=== PATIENT | female | born 1955 | race Caucasian/White ===

== ENCOUNTER 2016-08-17 19:45 | Emergency (ER) | payer MEDICARE, OTHER ==
[2016-08-17] MEDS ORDERED: ONDANSETRON 4 MG/2 ML VIAL IVP STA (20:10)
[2016-08-17] MEDS ORDERED: SODIUM CHLORIDE 0.9% 1,000 ML IV ONE ×3 (20:10→22:30)
[2016-08-17] MEDS ORDERED: ONDANSETRON 4 MG/2 ML VIAL ONE (20:12)
[2016-08-17] MEDS ORDERED: HALOPERIDOL 5 MG/ML VIAL IVP ONE (20:31)
[2016-08-17] MEDS ORDERED: HALOPERIDOL 5 MG/ML VIAL ONE (20:36)
[2016-08-17] MEDS ORDERED: PROMETHAZINE 25 MG SUPP PR STA (23:57)
[2016-08-18] MEDS ORDERED: PROMETHAZINE 25 MG SUPP PR ONE
== END 2016-08-18 00:04 | disposition home or self-care (01) ==
DX: E86.0 Dehydration (principal); E11.43 Type 2 diabetes mellitus with diabetic autonomic (poly)neuropathy; K31.84 Gastroparesis; E11.319 Type 2 diabetes mellitus with unspecified diabetic retinopathy without macular edema; E11.42 Type 2 diabetes mellitus with diabetic polyneuropathy; E11.51 Type 2 diabetes mellitus with diabetic peripheral angiopathy without gangrene; Z79.4 Long term (current) use of insulin; I10 Essential (primary) hypertension; Z85.828 Personal history of other malignant neoplasm of skin
CPT/HCPCS: 36415; 80053; 81001; 83690; 85025; 96361; 96374; 96375; 99284; J8498

== ENCOUNTER 2017-04-06 12:27 | Emergency (ER) | payer MEDICARE, OTHER ==
[2017-04-06 12:33] VITALS: BP 167/73
--- NOTE | 2017-04-06 12:46 | ED Physician Documentation ---
PD HPI WOUND RECHECK - Stated complaint Stated Complaint: DRESSING CHANGE - Chief complaint Chief Complaint: Wound - Histroy obtained from History obtained from: Patient - History of Present Illness Location: Other (This is a very pleasant long-standing diabetic who had a midfoot amputation on March 07 in [place]. She has had some issues with infections and comes in today because she needs a dressing change. She could go to her doctor's office because of the holiday. She has no acute complaints. She is currently on clindamycin for antibiotic coverage. There is no pain or fever.) Review of Systems Constitutional: reports: Reviewed and negative Cardiac: reports: Reviewed and negative Respiratory: reports: Reviewed and negative PD PAST MEDICAL HISTORY - Past Medical History Past Medical History: Yes Cardiovascular: Peripheral Vascular Disease, Hypertension Respiratory: Pneumonia Neuro: None Endocrine/Autoimmune: Type 2 diabetes GI: None : None HEENT: Chronic vision loss Psych: None Derm: None - Past Surgical History Past Surgical History: Yes General: Colonoscopy /[employer]: Hysterectomy HEENT: Tonsil/Adenoidectomy Derm: Skin cancer surgery - Present Medications Home Medications: Ambulatory Orders Medication Instructions Recorded Confirmed Insulin Detemir [Levemir] 80 unit SUBQ BID 02/22/13 08/17/16 traMADol [Ultram] 50 - 100 mg PO TID PRN 02/22/13 08/17/16 Gabapentin [Neurontin] 600 mg PO QPM 09/11/13 08/17/16 Levothyroxine Sodium [Synthroid] 150 mcg PO DAILY 09/11/13 08/17/16 Venlafaxine ER [Effexor ER] 150 mg PO DAILY 09/11/13 08/17/16 Losartan/Hydrochlorothiazide 25 mg PO DAILY 09/27/13 08/17/16 [Losartan-Hctz 100-25 mg Tab] Rosuvastatin Calcium [Crestor] 10 mg PO DAILY 10/25/13 08/17/16 Ibuprofen 2 tab PO DAILY 03/23/15 08/17/16 NIFEdipine [Procardia Xl] 30 mg PO DAILY 03/23/15 08/17/16 Promethazine Supp [Phenergan Supp] 25 mg SD Q6H PRN #20 supp 03/23/15 08/17/16 Ranitidine HCl [Zantac] 150 mg PO BID 28 Days tablet 03/23/15 08/17/16 traZODone [Desyrel] 50 mg PO DAILY 03/23/15 08/17/16 Promethazine [Phenergan] 25 mg PO Q6H PRN #10 tab 03/14/16 08/17/16 - Allergies Allergies/Adverse Reactions: Allergies Allergy/AdvReac Type Severity Reaction Status Date / Time codeine [Codeine] AdvReac Unknown Nausea Verified 04/06/17 12:43 ondansetron AdvReac Unknown Verified 04/06/17 12:42 [From Zofran (as hydrochloride)] - Social History Does the pt smoke?: No Smoking Status: Never smoker Does the pt drink ETOH?: No Does the pt have substance abuse?: No - Immunizations Immunizations are current?: Yes - POLST Patient has POLST: No PD ED PE NORMAL - Vitals Vital signs reviewed: Yes - General General: Alert and oriented X 3, No acute distress - Extremities Extremities: Other (She has a right foot amputation at the level of the distal metatarsals, the closure looks good, there is some granulation tissue, a little bit of necrotic tissue which was debrided roughly during examination. The suture line is intact. Was redressed with Xeroform, gauze and Coban. There is no sign of active infection.) - Neuro Neuro: Alert and oriented X 3, Normal speech - Psych Psych: Normal mood, Normal affect Results - Vitals Vitals: Vital Signs - 24 hr 04/06/17 12:31 Temperature 36.5 C Heart Rate 81 Respiratory 18 Rate Blood Pressure 167/73 H O2 Saturation 95 Oxygen O2 Source Room air Departure - Departure Disposition: 01 Home, Self Care Clinical Impression: Dressing change or removal, surgical wound Condition: Good Record reviewed to determine appropriate education?: Yes Comments: Follow-up with your foot doctor on Monday as scheduled for further dressing changes. Return if worse, for spreading redness or fevers. Your blood pressure was elevated today on check into the emergency department. This does not mean that you have hypertension, it is a common phenomenon to come to the emergency department and have elevated blood pressure. I recommend that you see your primary care physician within the week to have it rechecked when you are feeling better.
== END 2017-04-06 12:56 | disposition home or self-care (01) ==
LOC: ED 12:27
DX: Z48.01 Encounter for change or removal of surgical wound dressing (principal); Z89.431 Acquired absence of right foot; E11.51 Type 2 diabetes mellitus with diabetic peripheral angiopathy without gangrene; Z79.4 Long term (current) use of insulin; I10 Essential (primary) hypertension
CPT/HCPCS: 99282

== ENCOUNTER 2017-06-07 13:52 | Emergency (ER) | payer MEDICARE, OTHER ==
[2017-06-07] MEDS ORDERED: ALBUTEROL NEB 2.5 MG/3 ML INH STA ×2 (14:17→18:31)
--- NOTE | 2017-06-07 14:49 | XRAY Report ---
EXAM: CHEST RADIOGRAPHY EXAM DATE: 06/07/2017 02:34 PM. CLINICAL HISTORY: Chest pain left sided. COMPARISON: 02/11/2015. TECHNIQUE: 2 views. FINDINGS: Lungs/Pleura: Extensive infiltration throughout both lungs with patchy and somewhat nodular pattern. Numerous septal lines. No localized consolidation, effusion, or pneumothorax. Mediastinum: Normal heart size, probably unchanged. Upper lobe vessels not distended. Other: Right PIC catheter tip in mid to lower SVC about 9 mm below level of suzie. IMPRESSION: Extensive bilateral nodular infiltrates. Depending on clinical setting, further evaluatio n with CT scan may be helpful. [facility] Referring Provider Line: [phone] SITE ID: [id number]
[2017-06-07] MEDS ORDERED: IOPAMIDOL-300 100 ML VIAL ONE (14:53)
[2017-06-07] MEDS ORDERED: SODIUM CHLORIDE 0.9% 1,000 ML IV ONE (15:07)
[2017-06-07 15:29] LABS: BASOPHILS % (AUTO) 0.4 %; EOSINOPHILS % (AUTO) 2.2 %; HGB - HEMOGLOBIN 10.1 g/dL (12.0-16.0); LYMPHOCYTES % (AUTO) 7.1 %; MEAN CORPUSCULAR HEMOGLOBIN 27.8 pg (27.0-31.0); MEAN CORPUSCULAR HGB CONC 32.6 g/dL (32.0-36.0); MEAN CORPUSCULAR VOLUME 85.3 fL (81.0-99.0); MEAN PLATELET VOLUME 7.2 fL (7.9-10.8); MONOCYTES % (AUTO) 9.7 %; NEUTROPHILS % (AUTO) 80.6 %; PLT - PLATELET COUNT 551 10^3/uL (130-450); RED BLOOD COUNT 3.63 10^6/uL (4.20-5.40); RED CELL DISTRIBUTION WIDTH 14.8 % (12.0-15.0); WHITE BLOOD COUNT 29.2 x10^3/uL (4.8-10.8)
[2017-06-07 15:33] LABS: ABNORMAL LYMPHS % (MANUAL) 0 %
[2017-06-07 15:38] LABS: ALBUMIN/GLOBULIN RATIO 0.4 (1.0-2.2); BILIRUBIN,TOTAL 0.4 mg/dL (0.2-1.0); CALCIUM 8.8 mg/dL (8.5-10.3); CREATININE 1.5 mg/dL (0.4-1.0); TOTAL PROTEIN 6.9 g/dL (6.7-8.2)
[2017-06-07 15:48] LABS: BAND NEUTROPHILS % (MANUAL) 1 %; EOSINOPHILS # (MANUAL) 0.3 10^3/uL (0-0.7); LYMPHOCYTES % (MANUAL) 7 %; MONOCYTES # (MANUAL) 1.5 10^3/uL (0.0-1.0); NEUTROPHILS # (MANUAL) 25.4 10^3/uL (1.5-6.6); NEUTROPHILS % (MANUAL) 86 %
[2017-06-07 15:53] LABS: PLATELET ESTIMATE, MANUAL INCREASED (>450,000) (NORMAL); PLATELET MORPHOLOGY 1+ LARGE PLATELETS (NORMAL)
[2017-06-07] MEDS ORDERED: IOPAMIDOL-300 100 ML VIAL IVP ONE (16:03)
--- NOTE | 2017-06-07 16:17 | CT Report ---
EXAM: CT ANGIOGRAM CHEST EXAM DATE: 06/07/2017 04:03 PM. CLINICAL HISTORY: Dyspnea; multiple densities on CXR; foot infection. COMPARISON: None. TECHNIQUE: Routine helical imaging was performed through the chest in the pulmonary arterial phase. I V Contrast: 40 cc Isovue-300. Reconstructions: Sagittal, coronal, and 3-D MIP. In accordance with CT protocol optimization, one or more of the following dose reduction techniques w ere utilized for this exam: automated exposure control, adjustment of mA and/or KV based on patient s ize, or use of iterative reconstructive technique. FINDINGS: Pulmonary Arteries: Diagnostic quality: Adequate through the segmental arteries. No evidence for acute or chronic pulmona ry emboli. RV/LV is within normal limits. There is no interventricular septal bowing. There is no reflux of cont rast material in the IVC. Lungs/Pleura: Numerous somewhat nodular appearing infiltrates throughout both lungs with irregular ma rgins and some areas of confluence. No effusion or pneumothorax. Mediastinum: Normal overall heart size. Trace pericardial effusion. No coronary artery calcifications . Numerous prominent mediastinal lymph nodes. An AP window node measures 11.2 mm on axial image 41, a precarinal node measures 12.0 mm on image 42, and a subcarinal node measures 15.1 mm on image 56. Thoracic Aorta: Unremarkable. Upper Abdomen: Small left adrenal adenoma measuring 13.5 mm. Otherwise unremarkable. Other: None. IMPRESSION: 1. Negative for pulmonary embolism at this time. Unremarkable aorta. 2. Extensive bilateral nodular infiltrates, infectious versus non-infectious. 3. Mediastinal lymphadenopathy versus lymphadenitis. [facility] Referring Provider Line: [phone] SITE ID: [id number]
--- NOTE | 2017-06-07 17:06 | ED Physician Documentation ---
PD HPI DYSPNEA - Stated complaint Stated Complaint: LOW OXYGEN LEVEL - Chief complaint Chief Complaint: Resp - History obtained from History obtained from: Patient - History of Present Illness Timing - onset: How many days ago (2-3 days of cough productive of tay sputum, fatigue. Not dyspnea per se. Was getting Wound care treatments and IV antibiotics of daptomycin and hyperbaric treatments for foot infection. She had been hospitalized in [place] for the foot infection. She has been treated outpatient with daily IV daptomycin for about 5 weeks. She started hyperbaric treatment daily 5 days ago as the wound was still not healing well. She states at the hyperbaric facility her oxygen saturations were 90-91% the last couple of days.) Timing - onset during: Light activity Timing - duration: Days Timing - details: Gradual onset Inciting event(s): URI (has had some cough and sputum, no fevers nor congestion) Improved by: O2 Associated symptoms: Cough, Wheezing. No: Fever, Hemoptysis, Chest pain / discomfort, Palpitations, Bilateral edema Similar symptoms before: Has not had sx before Recently seen: Clinic (see above - outpatient wound management at [place], Dr. Sorenson with IV abx Daptomycin and also hyperbaric treatment.) Review of Systems Constitutional: denies: Fever, Chills Nose: denies: Rhinorrhea / runny nose, Congestion Throat: denies: Sore throat Cardiac: denies: Chest pain / pressure, Palpitations, Pedal edema, Calf pain Respiratory: reports: Dyspnea, Cough, Wheezing. 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 HEENT: Tonsil/Adenoidectomy Derm: Skin cancer surgery - Present Medications Home Medications: Ambulatory Orders Medication Instructions Recorded Confirmed Insulin Detemir [Levemir] 80 unit SUBQ BID 02/22/13 05/02/17 Gabapentin [Neurontin] 1,200 mg PO QPM 09/11/13 05/02/17 Levothyroxine Sodium [Synthroid] 175 mcg PO DAILY 09/11/13 05/02/17 Venlafaxine ER [Effexor ER] 150 mg PO DAILY 09/11/13 05/02/17 Losartan/Hydrochlorothiazide 1 tab PO DAILY 09/27/13 05/02/17 [Losartan-Hctz 100-25 mg Tab] Rosuvastatin Calcium [Crestor] 10 mg PO DAILY 10/25/13 05/02/17 Ibuprofen 2 tab PO DAILY 03/23/15 05/02/17 Aspirin 325 mg PO DAILY 04/06/17 05/02/17 NIFEdipine [Procardia Xl] 90 mg PO QPM 05/25/17 05/25/17 - Allergies Allergies/Adverse Reactions: Allergies Allergy/AdvReac Type Severity Reaction Status Date / Time codeine [Codeine] AdvReac Unknown Nausea Verified 06/07/17 13:59 ondansetron AdvReac Unknown Verified 06/07/17 13:59 [From Zofran (as hydrochloride)] - Social History Does the pt smoke?: No Smoking Status: Never smoker Does the pt drink ETOH?: No Does the pt have substance abuse?: No - Immunizations Immunizations are current?: Yes - POLST Patient has POLST: No PD ED PE NORMAL - Vitals Vital signs reviewed: Yes (oxygen 80-85% RA, improves to 92-94% with NC 2 lpm) - General General: Alert and oriented X 3, No acute distress, Well developed/nourished - HEENT HEENT: Ears normal, Pharynx benign - Neck Neck: Supple, no meningeal sign, No adenopathy - Cardiac Cardiac: RRR, No murmur - Respiratory Respiratory: No: Clear bilaterally (diffuse fine crackle sounds and also diffuse exp wheezing. ) - Abdomen Abdomen: Soft, Non tender - Female Female : Deferred - Rectal Rectal: Deferred - Back Back: No CVA TTP - Derm Derm: Normal color, Warm and dry - Extremities Extremities: No deformity, No tenderness to palpate, Normal ROM s pain, No edema , No calf tenderness / cord, Other (right foot with dressing on, with MT amputation noted. ) - Neuro Neuro: Alert and oriented X 3, No motor deficit, Normal speech Eye Opening: Spontaneous Motor: Obeys Commands Verbal: Oriented GCS Score: 15 - Psych Psych: Normal mood, Normal affect Results - Vitals Vitals: Vital Signs - 24 hr 06/07/17 06/07/17 06/07/17 13:56 14:44 16:26 Temperature 36.6 C Heart Rate 75 74 74 Respiratory 18 18 18 Rate Blood Pressure 122/4 L 127/60 O2 Saturation 92 95 06/07/17 06/07/17 18:45 18:52 Temperature Heart Rate 88 83 Respiratory 16 19 Rate Blood Pressure 149/60 H O2 Saturation 93 Oxygen O2 Source Nasal cannula - Labs Labs: Laboratory Tests 06/07/17 06/07/17 06/07/17 15:18 15:18 15:18 WBC 29.2 H RBC 3.63 L Hgb 10.1 L Hct 31.0 L MCV 85.3 MCH 27.8 MCHC 32.6 RDW 14.8 Plt Count 551 H MPV 7.2 L Neut # Not Reportable Lymph # Not Reportable [place] # Not Reportable Eos # Not Reportable Baso # Not Reportable Absolute Nucleated RBC Not Reportable Total Counted 100 Band Neuts % (Manual) 1 Abnorm Lymph % (Manual) 0 Nucleated RBC % Not Reportable Neutrophils # (Manual) 25.4 H Lymphocytes # (Manual) 2.0 Monocytes # (Manual) 1.5 H Eosinophils # (Manual) 0.3 Basophils # (Manual) 0.0 Manual Slide Review Indicated Platelet Estimate INCREASED (>450,000) Platelet Morphology 1+ LARGE PLATELETS RBC Morph Micro Appear 1+ SCHISTOCYTES Sodium 128 L Potassium 4.6 Chloride 88 L Carbon Dioxide 26 Anion Gap 14.0 H BUN 35 H Creatinine 1.5 H Estimated GFR (MDRD) 35 L Glucose 288 H Lactic Acid Calcium 8.8 Total Bilirubin 0.4 AST 19 ALT 33 Alkaline Phosphatase 312 H B-Natriuretic Peptide 486 H Total Protein 6.9 Albumin 2.0 L Globulin 4.9 H Albumin/Globulin Ratio 0.4 L Lipase 27 06/07/17 15:18 WBC RBC Hgb Hct MCV MCH MCHC RDW Plt Count MPV Neut # Lymph # [place] # Eos # Baso # Absolute Nucleated RBC Total Counted Band Neuts % (Manual) Abnorm Lymph % (Manual) Nucleated RBC % Neutrophils # (Manual) Lymphocytes # (Manual) Monocytes # (Manual) Eosinophils # (Manual) Basophils # (Manual) Manual Slide Review Platelet Estimate Platelet Morphology RBC Morph Micro Appear Sodium Potassium Chloride Carbon Dioxide Anion Gap BUN Creatinine Estimated GFR (MDRD) Glucose Lactic Acid 1.6 Calcium Total Bilirubin AST ALT Alkaline Phosphatase B-Natriuretic Peptide Total Protein Albumin Globulin Albumin/Globulin Ratio Lipase - Rads (name of study) chest Radiology: Prelim report reviewed, EMP read contemporaneously (diffuse nodular infiltrates, without calcifications. no effusions.) chest CT-A Radiology: Prelim report reviewed (diffuse interstitial nodular infiltrates. No abscesses. Mediastinal nodes. No emboli. ) PD MEDICAL DECISION MAKING - ED course Complexity details: reviewed results, re-evaluated patient (breathing improved with neb treatments but sats still 85% at rest on RA. Oxygen at 2 lpm NC improved to 92-94% and breathing comfortably. ), considered differential, d/w patient, d/w sap business objects consultant (Pulmonary vibration engineer at [facility], Dr. 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 Recommends bronchoscopy. ), other ([facility] was full and not taking transfers - [facility] was able to take transfer, talked with Hortensia Meza Hospitalist, who accepts. ) Departure - Departure Disposition: 02 Transfer Acute Care Hosp Clinical Impression: Hypoxia Pneumonia Qualifiers: Pneumonia type: due to unspecified organism Laterality: bilateral Lung location : unspecified part of lung Qualified Code(s): J18.9 - Pneumonia, unspecified organism Diabetes Qualifiers: Diabetes mellitus type: type 1 Diabetes mellitus complication status: without complication Qualified Code(s): E10.9 - Type 1 diabetes mellitus without complications Condition: Stable Record reviewed to determine appropriate education?: Yes
[2017-06-07] MEDS ORDERED: AZITHROMYCIN INJ 500 MG in SODIUM CHLORIDE 0.9% 250 ML IV STA (18:22)
[2017-06-07 20:14] VITALS: BP 143/69
== END 2017-06-07 20:15 | disposition short-term general hospital (02) ==
LOC: ED 13:52
DX: R09.02 Hypoxemia (principal); J18.9 Pneumonia, unspecified organism; E10.51 Type 1 diabetes mellitus with diabetic peripheral angiopathy without gangrene; I10 Essential (primary) hypertension; Z79.4 Long term (current) use of insulin; Z79.82 Long term (current) use of aspirin; E03.9 Hypothyroidism, unspecified
CPT/HCPCS: 36415; 71046; 71275; 80053; 83605; 83690; 83880; 85025; 87040; 94640; 96361; 96365; 99284; J7613; Q9967

== ENCOUNTER 2017-06-07 20:18 | Outpatient (CLI) | payer MEDICARE, OTHER | END 2017-06-07 20:19 | disposition short-term general hospital (02) | LOC: EMS 20:18 | PROVIDERS: ATTEND Surgery | DX: J18.9 Pneumonia, unspecified organism (principal) | CPT/HCPCS: A0425; A0426 ==

== ENCOUNTER 2017-10-05 07:43 | Outpatient (CLI) | payer MEDICARE, OTHER ==
--- NOTE | 2017-10-06 13:45 | Ultrasound Report ---
CAROTID DUPLEX: 10/05/2017 CLINICAL INDICATION: Arterial disorder, whooshing sound in ear, history of diabetes. TECHNIQUE: Real-time sonographic vascular imaging was performed by the licensed practical vocational nurse through the carotid arteries utilizing both color-flow and Doppler spectral analysis. Multiple arborist representative static images were saved for review. RIGHT 3 Vessel PSV cm/sec EDV cm/sec ICA/CCA RSV Ratio Degree of Stenosis Plaque Estimate % RCCA Prox 80 -- -- RCCA Dist 77 16 -- RECA 152 -- -- RT BULB 62 18 0.80 MARIANA Prox 77 25 1.00 MARIANA Mid 96 18 1.24 MARIANA Dist 60 17 0.77 RVA 88 -- -- RVA flow direction: Antegrade Tortuous ICA LEFT 3 Vessel PSV cm/sec EDV cm/sec ICA/CCA RSV Ratio Degree of Stenosis Plaque Estimate % LCCA Prox 88 -- -- LCCA Dist 90 18 -- LECA 137 -- -- LFT BULB 90 23 1.00 LICA Prox 95 30 1.05 LICA Mid 94 29 1.04 LICA Dist 114 35 1.26 LVA 78 -- -- LVA flow direction: Antegrade Tortuous ICA Velocity criteria are extrapolated from diameter data as defined by the Society of Radiologists in Ultrasound Consensus Conference Radiology 2003; 229; 340-346. 3 Degree of Stenosis % ICA PSV cm/sec ICA EDV cm/sec ICA/CCA PSV Ratio Plaque Estimate % Normal < 125 < 40 < 2.0 None <50 < 125 < 40 < 2.0 < 50 50-69 125-130 40-100 2.0-4.0 >/=50 >/=70 but less than near occlusion > 230 > 100 > 4.0 >/=50 Near occlusion High, low or undetectable Variable Variable Visible Total occlusion Undetectable Not applicable Not applicable No detectable lumen FINDINGS RIGHT: There is minimal plaquing in the right carotid bifurcation, without evidence of a focal hemodynamically significant carotid stenosis. LEFT: There is minimal plaquing in the left carotid bifurcation, without evidence of a focal hemodynamically significant carotid stenosis. The vertebral arteries demonstrate antegrade flow bilaterally. IMPRESSION: NO EVIDENCE OF A HEMODYNAMICALLY SIGNIFICANT CAROTID STENOSIS. TD: 10/05/2017 12:00 [facility]
== END 2017-10-05 07:44 | disposition home or self-care (01) ==
LOC: DI 07:43
PROVIDERS: ATTEND Family Medicine
DX: I77.9 Disorder of arteries and arterioles, unspecified (principal)
CPT/HCPCS: 93880

== ENCOUNTER 2018-05-05 20:23 | Inpatient (IN) | payer MEDICARE, OTHER ==
--- NOTE | 2018-05-05 20:33 | ED Physician Documentation ---
PD HPI DYSPNEA - Stated complaint Stated Complaint: SOA - Chief complaint Chief Complaint: Resp - History obtained from History obtained from: Family - History of Present Illness Timing - onset: How many days ago (2) Associated symptoms: Cough Recently seen: Not recently seen - Additional information Additional information: Patient does not contribute to HPI, ROS, and limits physical exam due to poor cooperation. She does not answer any of my questions, repeatedly requests water, discharge from ED, wants to get out of bed. she makes almost no eye contact. she seems aware I am present and trying to converse with her. she seems angry and at one point she swings her arm so as to knock the respiratory therapists stethoscope off of her chest. S.O. tells me that he has had URI and he suspects she caught the same infection several days ago. he says that her diabetes often becomes uncontrolled when she gets sick, and for the past 2 days, she has become increasingly irritable, agitated, and he thinks she has not been checking her blood sugar or taking her insulin correctly, if at all. 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 HEENT: Tonsil/Adenoidectomy Derm: Skin cancer surgery - Present Medications Home Medications: Ambulatory Orders Medication Instructions Recorded Confirmed Insulin Detemir [Levemir] 20 unit SUBQ BID 02/22/13 05/06/18 Gabapentin [Neurontin] 1,200 mg PO QPM 09/11/13 05/06/18 Levothyroxine Sodium [Synthroid] 175 mcg PO QDAC 09/11/13 05/06/18 Venlafaxine ER [Effexor ER] 150 mg PO DAILY 09/11/13 05/06/18 Losartan/Hydrochlorothiazide 1 tab PO DAILY 09/27/13 05/06/18 [Losartan-Hctz 100-25 mg Tab] Rosuvastatin Calcium [Crestor] 20 mg PO DAILY 10/25/13 05/06/18 Amox/Clav 500/125 [Augmentin 1 tab PO [id number] 05/06/18 05/06/18 500/125] Aspirin [Aspirin EC] 81 mg PO DAILY PRN 05/06/18 05/06/18 Carvedilol 6.25 mg PO BID 05/06/18 05/06/18 Ibuprofen 400 mg PO DAILY PRN 05/06/18 05/06/18 Nifedipine [Nifedipine ER] 30 mg PO QPM 05/06/18 05/06/18 - Allergies Allergies/Adverse Reactions: Allergies Allergy/AdvReac Type Severity Reaction Status Date / Time codeine [Codeine] AdvReac Mild Nausea Verified 05/07/18 06:42 daptomycin AdvReac Respiratory Verified 05/05/18 20:36 ondansetron AdvReac Unknown Verified 05/05/18 20:36 [From Zofran (as hydrochloride)] - Social History Does the pt smoke?: No Smoking Status: Never smoker Does the pt drink ETOH?: No Does the pt have substance abuse?: No - Immunizations Immunizations are current?: Yes - POLST Patient has POLST: No PD ED PE NORMAL - Vitals Vital signs reviewed: Yes - General General: No acute distress, Well developed/nourished, Other (awake, alert. cannot assess orientation, as she will not answer any of my questions) - HEENT HEENT: Moist mucous membranes, Other (strabismus) - Neck Neck: Supple, no meningeal sign - Cardiac Cardiac: No murmur - Respiratory Respiratory: No respiratory distress, Other (scattered rhonchi but moving air well, no wheezing) - Abdomen Abdomen: Soft, Non tender - Derm Derm: Normal color, Warm and dry - Extremities Extremities: No edema - Neuro Neuro: No motor deficit, No sensory deficit PD ED PE EXPANDED - Cardiac Cardiac: Tachy, Regular Rhythm Results - Vitals Vitals: Oxygen O2 Source Nasal cannula Oxygen Flow Rate 2 - EKG (time done) No standard instances Rate: Rate (enter#) (113), Tachy Rhythm: Sinus tachycardia, LISA [place]: Normal Intervals: Normal [place] QRS: Normal Ischemia: Normal ST segments - Labs Labs: Laboratory Tests 05/05/18 05/05/18 05/05/18 20:40 20:40 20:40 WBC 16.3 H RBC 5.09 Hgb 14.9 Hct 46.6 MCV 91.6 MCH 29.2 MCHC 31.9 L RDW 13.3 Plt Count 367 MPV 8.5 Neut # (Auto) 13.9 H Lymph # (Auto) 1.0 L [place] # (Auto) 1.3 H Eos # (Auto) 0.0 Baso # (Auto) 0.1 Absolute Nucleated RBC 0.02 Nucleated RBC % 0.1 VBG pH VBG pCO2 VBG pO2 VBG HCO3 VBG Total CO2 VBG O2 Saturation VBG Base Excess Sodium 137 Potassium 4.1 Chloride 87 L Carbon Dioxide 29 Anion Gap 21.0 H BUN 44 H Creatinine 2.0 H Estimated GFR (MDRD) 25 L Glucose 670 H* POC Whole Bld Glucose Calcium 9.5 Total Bilirubin 0.8 AST 32 ALT 22 Alkaline Phosphatase 136 H Troponin I < 0.04 Total Protein 8.0 Albumin 4.1 Globulin 3.9 Albumin/Globulin Ratio 1.1 Lipase 17 L Serum Ketones 05/05/18 05/05/18 05/05/18 20:40 21:23 22:54 WBC RBC Hgb Hct MCV MCH MCHC RDW Plt Count MPV Neut # (Auto) Lymph # (Auto) [place] # (Auto) Eos # (Auto) Baso # (Auto) Absolute Nucleated RBC Nucleated RBC % VBG pH 7.456 H VBG pCO2 43.2 VBG pO2 23.8 L VBG HCO3 29.8 H VBG Total CO2 31.1 H VBG O2 Saturation 50.1 L VBG Base Excess 5.2 H Sodium Potassium Chloride Carbon Dioxide Anion Gap BUN Creatinine Estimated GFR (MDRD) Glucose POC Whole Bld Glucose 414 H Calcium Total Bilirubin AST ALT Alkaline Phosphatase Troponin I Total Protein Albumin Globulin Albumin/Globulin Ratio Lipase Serum Ketones SMALL H - Rads (name of study) chest xray Radiology: Prelim report reviewed, See rad report PD MEDICAL DECISION MAKING - ED course Complexity details: reviewed results, re-evaluated patient, considered differential, d/w patient, d/w family ED course: became increasingly agitated during ED stay, trying to get out of bed despite repeated instruction to not do so due to confusion and unsteadiness. as an example of her confusion, she was given ice chips with a spoon. she tried to drink from the spoon as if it were a straw. when the RN explained that it was not water but ice chips, and that it was a spoon and not a straw, patient continued to try to use the spoon as if it was a straw in water. she responded well to IV ativan, which resulted in mild sedation. blood sugar is over 600 with (+) serum ketones. will admit for hyperosmolar hyperglycemia (not nonketotic, although ketones are small and VBG shows normal pH) Departure - Departure Disposition: 66 [facility] DC/Xfer Clinical Impression: Dehydration, Hyperglycemia Condition: Fair Discharge Date/Time: 05/05/18 23:52
[2018-05-05 20:49] LABS: BASOPHILS # (AUTO) 0.1 10^3/uL (0.0-0.1); BASOPHILS % (AUTO) 0.9 %; HGB - HEMOGLOBIN 14.9 g/dL (12.0-16.0); LYMPHOCYTES % (AUTO) 6.1 %; MEAN CORPUSCULAR HEMOGLOBIN 29.2 pg (27.0-31.0); MEAN CORPUSCULAR HGB CONC 31.9 g/dL (32.0-36.0); MEAN CORPUSCULAR VOLUME 91.6 fL (81.0-99.0); MEAN PLATELET VOLUME 8.5 fL (7.9-10.8); MONOCYTES # (AUTO) 1.3 10^3/uL (0.0-1.0); MONOCYTES % (AUTO) 8.2 %; NEUTROPHILS # (AUTO) 13.9 10^3/uL (1.5-6.6); NEUTROPHILS % (AUTO) 84.8 %; PLT - PLATELET COUNT 367 10^3/uL (130-450); RED BLOOD COUNT 5.09 10^6/uL (4.20-5.40); RED CELL DISTRIBUTION WIDTH 13.3 % (12.0-15.0); WHITE BLOOD COUNT 16.3 x10^3/uL (4.8-10.8)
[2018-05-05] MEDS ORDERED: SODIUM CHLORIDE 0.9% 1,000 ML IV STA ×2 (20:52→21:31)
--- NOTE | 2018-05-05 21:15 | XRAY Report ---
Reason: chest pain SOA Procedure Date: 05/05/2018 Accession Number: [id number] / [id number] Procedure: XR - Chest 1 View X-Ray CPT Code: 31855 FULL RESULT: EXAM: CHEST RADIOGRAPHY EXAM DATE: 05/05/2018 09:05 PM. CLINICAL HISTORY: Cough. Chest pain. COMPARISON: CHEST 2 VIEW 06/07/2017 2:20 PM CHEST ANGIO 06/07/2017 3:57 PM. TECHNIQUE: 1 view. FINDINGS: Cardiac leads overlie the chest. Heart size is normal. Calcified plaques in the aortic arch. No consolidation, pleural effusion, or pneumothorax. Mild diffuse prominence of the pulmonary interstitium may represent changes from chronic lung disease. IMPRESSION: No acute cardiopulmonary findings. [facility]
[2018-05-05 21:16] LABS: ALBUMIN 4.1 g/dL (3.2-5.5); ALBUMIN/GLOBULIN RATIO 1.1 (1.0-2.2); BILIRUBIN,TOTAL 0.8 mg/dL (0.2-1.0); CALCIUM 9.5 mg/dL (8.5-10.3)
[2018-05-05] MEDS ORDERED: INSULIN REGULAR HUMAN 100 UNIT/1 ML 10 ML MDV IVP STA (21:30)
[2018-05-05 21:37] LABS: VBG BASE EXCESS 5.2 mmol/L (-2 - +2); VBG PCO2 43.2 mmHg (41-51); VBG PH 7.456 (7.31-7.41); VBG PO2 23.8 mmHg (25-47); VBG TOTAL CO2 31.1 mmol/L (24-29)
[2018-05-05] MEDS ORDERED: LORazepam 2 MG/ML VIAL IVP STA (22:06)
[2018-05-05] MEDS ORDERED: ONDANSETRON 4 MG/2 ML VIAL IVP STA (22:06)
[2018-05-05] MEDS ORDERED: PROCHLORPERAZINE 10 MG/2 ML VIAL IVP PRN (23:01)
[2018-05-05] MEDS ORDERED: SODIUM CHLORIDE FLUSH 0.9% 10 ML SYRINGE IVP PRN (23:01)
[2018-05-05] MEDS ORDERED: NIFEdipine ER 90 MG TABLET PO SCH (23:14)
[2018-05-05] MEDS ORDERED: INSULIN REGULAR HUMAN 100 UNIT in SODIUM CHLORIDE 0.9% 100ML 99 ML IV SCH (23:45)
[2018-05-05] MEDS ORDERED: SODIUM CHLORIDE 0.9% 1,000 ML IV SCH (23:45)
[2018-05-05 23:57] LABS: KETONES, SERUM (ACETEST) NEGATIVE (NEGATIVE)
[2018-05-05 23:59] LABS: CALCIUM 8.1 mg/dL (8.5-10.3); CREATININE 1.6 mg/dL (0.4-1.0); MAGNESIUM 1.6 mg/dL (1.7-2.8)
[2018-05-06 00:09] LABS: MAGNESIUM 1.5 mg/dL (1.7-2.8)
[2018-05-06 00:11] LABS: HB2 TOTAL 12.7 g/dL; HEMOGLOBIN A1C 1.21 g/dL; HEMOGLOBIN A1C % 10.9 % (4.6-6.2)
[2018-05-06] MEDS: GABAPENTIN 400 MG CAPSULE PO SCH ×2 (00:35→21:14)
[2018-05-06] MEDS: PANTOPRAZOLE 40 MG VIAL IVP SCH ×3 (00:35→15:39)
[2018-05-06] MEDS: SODIUM CHLORIDE FLUSH 0.9% 10 ML SYRINGE IVP SCH ×3 (01:09→16:44)
--- NOTE | 2018-05-06 01:12 | HISTORY & PHYSICAL EXAMINATION ---
DATE OF SERVICE: 05/05/2018 Physician: Orin Aguilar MD HISTORY OF PRESENT ILLNESS: This is a 63-year-old white female with a history of diabetes, with diabetic neuropathy and retinopathy, is legally blind, had osteomyelitis and peripheral vascular disease with prior toe amputations, CKD, hypertension, depression, hypothyroidism. Patient presented to the emergency room with complaints of shortness of breath and also the husbnd noted confusion. Workup in the ER reveals that she is in a hyperosmolar nonketotic state and is being admitted to the ICU for an insulin drip. She was awake and confiused in the ER, received Ativan and now is somnolent in the ICU. PAST MEDICAL HISTORY 1. Insulin-dependent diabetes. 2. PVD. 3. CKD. 4. Hypertension. 5. Depression. 6. Diabetic neuropathy. 7. Diabetic retinopathy. 8. Past osteomyelitis. 9. Hypothyroidism. 10. Prior leg cellulitis. 11. Currently has a dressing on the right leg from bug bites. REVIEW OF SYSTEMS: A comprehensive review of systems was performed, and pertinent positives are above. The rest are negative. FAMILY HISTORY: No inherited diseases. SOCIAL HISTORY: Patient is a nonsmoker who never smoked, uses no alcohol or drugs. ALLERGIES 1. CODEINE, WHICH CAUSES NAUSEA. 2. DAPTOMYCIN, WHICH CAUSES RESPIRATORY DISTRESS. 3. ZOFRAN, WHICH CAUSES AN UNKNOWN REACTION. MEDICATIONS 1. Levemir insulin 80 units subcutaneously b.i.d. 2. Neurontin 1200 mg every night. 3. Synthroid 175 mcg daily. 4. Venlafaxine 150 mg daily. 5. Losartan/HCT 100/25 mg daily. 6. Crestor 10 mg daily. 7. Ibuprofen unknown dose daily. 8. Aspirin adult dose daily. PHYSICAL EXAMINATION GENERAL: White female. VITAL SIGNS: Blood pressure 170/100, heart rate 75-110 in sinus rhythm, respiratory rate 25, O2 saturation 99% on 2 L nasal cannula, afebrile. Her room air saturation was 94%. HEENT: Shows dry oral mucosa. NECK: Without JVD or carotid bruits. CHEST: Clear. HEART: Sounds normal. ABDOMEN: Soft, decreased bowel sounds, nontender. EXTREMITIES: No edema. R leg has a dressing. NEUROLOGIC: She was confused, oriented only to self. LABORATORY DATA: Sodium 137, potassium 4.1, anion gap 21, BUN 44, creatinine 2.0. Her baseline creatinine is 0.7 to 1.5. Blood glucose 670. Normal liver tests. Troponin not detectable. Normal lipase. Serum ketones are small. White blood count 16.3 with a left shift, hemoglobin 14.9, platelet count normal at 367. No INR was done. Venous blood gas showed a pH of 7.45, and on chemistry she has carbon dioxide normal at 29. CHEST X-RAY: No active disease. ELECTROCARDIOGRAM: Sinus tachycardia with a rate of 113, P pulmonale, and otherwise unremarkable. DIAGNOSES 1. Hyperosmolar nonketotic state. 2. Altered mental status/confusion, possibly from her hyperosmolar state, but rule out medication-induced. 3. Diabetic neuropathy and retinopathy. 4. Peripheral vascular disease. 5. Acute on chronic kidney disease. 6. Hypertension. 7. Depression. 8. Hypothyroidism. 9. Leg wounds. PLAN: Admit patient to the ICU on an insulin drip and IV saline with frequent BMP checks and fingersticks. If her neurologic status does not improve, then head CT will be done. Continue with her other medications such as the aspirin, antidepressant, thyroid medications. Advance her diet slowly. Use Compazine or Reglan as needed for antiemetics. Wound consult will be obtained for the dressing on the right leg which is from bug bites according to patient and . CODE STATUS: FULL CODE. DEEP VENOUS THROMBOSIS PROPHYLAXIS: SCDs. ATTESTATION: Patient is expected to be discharged or transferred to another facility within 96 hours: Yes. TD: 05/06/2018 00:08 KARIN
[2018-05-06 01:19] LABS: KETONES, SERUM (ACETEST) NEGATIVE (NEGATIVE)
[2018-05-06] MEDS ORDERED: POTASSIUM CHLORIDE 20 MEQ TABLET PO SCH ×2 (01:20→07:24)
[2018-05-06 01:22] LABS: BUN - BLOOD UREA NITROGEN 45 mg/dL (6-20); CARBON DIOXIDE - CO2 28 mmol/L (21-32); CHLORIDE 94 mmol/L (101-111); CREATININE 1.6 mg/dL (0.4-1.0); GFR - MDRD 33 (>89); GLUCOSE 376 mg/dL (70-100); MAGNESIUM 1.5 mg/dL (1.7-2.8); SODIUM 134 mmol/L (135-145)
[2018-05-06] MEDS: MAGNESIUM OXIDE 400 MG TABLET PO SCH ×2 (02:08→08:31)
[2018-05-06 04:37] LABS: MUDS CUTOFF CONCENTRATIONS CUTOFF CONC BELOW:
[2018-05-06 04:38] LABS: BILIRUBIN,URINE NEGATIVE (NEGATIVE); GLUCOSE, URINE (UA) >=1000 mg/dL (NEGATIVE); KETONES,URINE (UA) TRACE mg/dL (NEGATIVE); LEUKOCYTE ESTERASE, URINE NEGATIVE (NEGATIVE); NITRITE,URINE NEGATIVE (NEGATIVE); OCCULT BLOOD,URINE LARGE (NEGATIVE); PH,URINE 5.5 PH (5.0-7.5); PROTEIN,URINE >=300 mg/dL (NEGATIVE); UROBILINOGEN,URINE 0.2 (NORMAL) E.U./dL (NORMAL)
[2018-05-06 04:40] LABS: CLARITY,URINE CLEAR (CLEAR)
[2018-05-06 04:44] LABS: BACTERIA,URINE None Seen /HPF (None Seen); CASTS, URINE 3-5 Hyaline Casts /LPF; SQUAMOUS EPITHELIAL CELL,UR RARE Squamous (<= Few)
[2018-05-06 04:49] LABS: AMPHETAMINE SCREEN,URINE NEGATIVE (NEGATIVE); BENZODIAZEPINES SCREEN, URINE POSITIVE (NEGATIVE); COCAINE SCREEN URINE NEGATIVE (NEGATIVE); METHADONE SCREEN, URINE NEGATIVE (NEGATIVE); METHAMPHETAMINES SCREEN, URINE NEGATIVE (NEGATIVE); OPIATE SCREEN, URINE NEGATIVE (NEGATIVE); OXYCODONE SCREEN, URINE NEGATIVE (NEGATIVE); PROPOXYPHENE SCREEN, URINE NEGATIVE (NEGATIVE); TRICYCLIC ANTIDEPRESSANT,URINE NEGATIVE (NEGATIVE)
[2018-05-06 05:05] LABS: BASOPHILS # (AUTO) 0.1 10^3/uL (0.0-0.1); BASOPHILS % (AUTO) 0.9 %; HGB - HEMOGLOBIN 12.3 g/dL (12.0-16.0); LYMPHOCYTES # (AUTO) 1.3 10^3/uL (1.5-3.5); LYMPHOCYTES % (AUTO) 9.4 %; MEAN CORPUSCULAR HEMOGLOBIN 29.6 pg (27.0-31.0); MEAN CORPUSCULAR HGB CONC 32.7 g/dL (32.0-36.0); MEAN CORPUSCULAR VOLUME 90.7 fL (81.0-99.0); MEAN PLATELET VOLUME 8.7 fL (7.9-10.8); MONOCYTES # (AUTO) 1.2 10^3/uL (0.0-1.0); MONOCYTES % (AUTO) 9.2 %; NEUTROPHILS # (AUTO) 10.7 10^3/uL (1.5-6.6); NEUTROPHILS % (AUTO) 80.5 %; PLT - PLATELET COUNT 257 10^3/uL (130-450); RED BLOOD COUNT 4.16 10^6/uL (4.20-5.40); RED CELL DISTRIBUTION WIDTH 12.6 % (12.0-15.0); WHITE BLOOD COUNT 13.3 x10^3/uL (4.8-10.8)
[2018-05-06 05:07] LABS: KETONES, SERUM (ACETEST) NEGATIVE (NEGATIVE)
[2018-05-06 05:11] LABS: CREATININE 1.5 mg/dL (0.4-1.0)
[2018-05-06] MEDS ORDERED: D5NS W/20 MEQ KCL 1,000 ML IV ONE (05:17)
[2018-05-06 05:24] LABS: PHOSPHORUS 3.9 mg/dL (2.5-4.6)
[2018-05-06] MEDS ORDERED: D5NS W/20 MEQ KCL 1,000 ML IV SCH (06:00)
[2018-05-06] MEDS: LEVOTHYROXINE 100 MCG TABLET PO SCH (06:50)
[2018-05-06] MEDS: LEVOTHYROXINE 75 MCG TABLET PO SCH (06:50)
[2018-05-06] MEDS ORDERED: INSULIN REGULAR HUMAN 100 UNIT/1 ML 10 ML MDV SUBQ SCH (07:00)
[2018-05-06] MEDS ORDERED: INSULIN GLARGINE 300 UNIT/3 ML PEN SUBQ SCH ×3 (08:00→21:00)
[2018-05-06] MEDS: SODIUM CHLORIDE 0.9% 1,000 ML IV SCH ×2 (08:22→15:40)
[2018-05-06] MEDS: ATORVASTATIN 40 MG TABLET PO SCH (08:37)
[2018-05-06] MEDS: ASPIRIN 325 MG TABLET PO SCH (08:37)
[2018-05-06] MEDS: VENLAFAXINE ER 75 MG CAPSULE PO SCH (08:38)
[2018-05-06] MEDS: INSULIN ASPART 300 UNIT/3 ML PEN SUBQ SCH ×4 (08:40→21:13)
[2018-05-06] MEDS: POLYETHYLENE GLYCOL 3350 17 GM PACKET PO SCH (08:40)
[2018-05-06] MEDS ORDERED: LEVOTHYROXINE SODIUM 175 MCG PO SCH (09:00)
[2018-05-06] MEDS ORDERED: NON FORMULARY MED (Rosuvastatin Calcium [Crestor] 10 MG) PO SCH (09:00)
[2018-05-06 09:04] LABS: HB2 TOTAL 13.4 g/dL; HEMOGLOBIN A1C 1.28 g/dL; HEMOGLOBIN A1C % 10.9 % (4.6-6.2)
[2018-05-06] MEDS ORDERED: BENZOCAINE/MENTHOL LOZENGE MM PRN (09:32)
[2018-05-06] MEDS ORDERED: POTASSIUM CHLORIDE 20 MEQ/15 ML UDC PO ONE (10:00)
[2018-05-06] MEDS ORDERED: IBUPROFEN 400 MG TABLET PO PRN (11:11)
[2018-05-06] MEDS ORDERED: NIFEdipine ER 30 MG TABLET PO SCH (21:00)
[2018-05-06] MEDS ORDERED: GABAPENTIN 1200 MG PO SCH (21:00)
[2018-05-06] MEDS ORDERED: NIFEdipine ER 90 MG TABLET PO SCH (21:00)
[2018-05-06] MEDS: CARVEDILOL 3.125 MG TABLET PO SCH (21:14)
[2018-05-07] MEDS ORDERED: guaiFENesin/CODEINE 5 ML UDC PO PRN (00:31)
[2018-05-07] MEDS ORDERED: ZOLPIDEM 5 MG TABLET PO PRN (00:32)
[2018-05-07] MEDS: SODIUM CHLORIDE FLUSH 0.9% 10 ML SYRINGE IVP SCH ×2 (00:36→08:40)
[2018-05-07] MEDS: AMOX/CLAV 500 MG/125 MG TABLET PO SCH ×2 (00:49→08:54)
[2018-05-07] MEDS ORDERED: AMOX/CLAV 500 MG/125 MG TABLET PO SCH (01:00)
[2018-05-07 04:57] LABS: BASOPHILS # (AUTO) 0.1 10^3/uL (0.0-0.1); EOSINOPHILS # (AUTO) 0.1 10^3/uL (0.0-0.7); HGB - HEMOGLOBIN 12.9 g/dL (12.0-16.0); LYMPHOCYTES # (AUTO) 2.6 10^3/uL (1.5-3.5); LYMPHOCYTES % (AUTO) 22.1 %; MEAN CORPUSCULAR HEMOGLOBIN 29.9 pg (27.0-31.0); MEAN CORPUSCULAR HGB CONC 32.8 g/dL (32.0-36.0); MEAN CORPUSCULAR VOLUME 91.2 fL (81.0-99.0); MEAN PLATELET VOLUME 8.2 fL (7.9-10.8); MONOCYTES # (AUTO) 1.1 10^3/uL (0.0-1.0); MONOCYTES % (AUTO) 9.2 %; NEUTROPHILS % (AUTO) 66.7 %; PLT - PLATELET COUNT 255 10^3/uL (130-450); RED CELL DISTRIBUTION WIDTH 13.4 % (12.0-15.0); WHITE BLOOD COUNT 11.9 x10^3/uL (4.8-10.8)
[2018-05-07 05:11] LABS: CALCIUM 7.8 mg/dL (8.5-10.3); CREATININE 0.9 mg/dL (0.4-1.0); MAGNESIUM 1.9 mg/dL (1.7-2.8); PHOSPHORUS 1.9 mg/dL (2.5-4.6)
[2018-05-07] MEDS: NEUTRA-PHOS 250 MG TABLET PO SCH ×2 (06:17→08:51)
[2018-05-07] MEDS: LEVOTHYROXINE 75 MCG TABLET PO SCH (06:17)
[2018-05-07] MEDS: LEVOTHYROXINE 100 MCG TABLET PO SCH (06:18)
[2018-05-07] MEDS: PANTOPRAZOLE 40 MG VIAL IVP SCH (06:20)
[2018-05-07] MEDS ORDERED: INSULIN GLARGINE 300 UNIT/3 ML PEN SUBQ SCH (08:00)
[2018-05-07] MEDS ORDERED: hydrALAZINE INJ 20 MG/ML VIAL IVP ONE (08:09)
[2018-05-07] MEDS: SODIUM CHLORIDE 0.9% 1,000 ML IV SCH ×2 (08:35)
[2018-05-07] MEDS: INSULIN ASPART 300 UNIT/3 ML PEN SUBQ SCH (08:40)
[2018-05-07] MEDS: CARVEDILOL 3.125 MG TABLET PO SCH (08:52)
[2018-05-07] MEDS: ATORVASTATIN 40 MG TABLET PO SCH (08:53)
[2018-05-07] MEDS: VENLAFAXINE ER 75 MG CAPSULE PO SCH (08:54)
[2018-05-07] MEDS: POLYETHYLENE GLYCOL 3350 17 GM PACKET PO SCH (08:54)
[2018-05-07] MEDS: ASPIRIN 325 MG TABLET PO SCH (08:54)
--- NOTE | 2018-05-07 09:34 | XRAY Report ---
Reason: Cough, eval for CHF vs pneumonia Procedure Date: 05/07/2018 Accession Number: [id number] / [id number] Procedure: XR - Chest 1 View X-Ray CPT Code: 63554 FULL RESULT: EXAM: CHEST RADIOGRAPHY EXAM DATE: 05/07/2018 08:50 AM. CLINICAL HISTORY: Cough, evaluate for CHF vs pneumonia. COMPARISON: Chest 1 view 05/05/2018 8:54 PM. TECHNIQUE: 1 view. FINDINGS: Lungs/Pleura: Mild increased interstitial prominence and prominence of hilar vessels. No focal opacities evident. No pleural effusion. No pneumothorax. Mediastinum: Within exam limitations, the cardiomediastinal contour is normal. Other: None. IMPRESSION: No lobar consolidation to suggest airspace disease. Mild increase in interstitial prominence is compatible with mild pulmonary edema. RADIA
--- NOTE | 2018-05-07 10:34 | PROVIDER PROGRESS NOTE ---
Assessment/Plan - Problem List (1) Diabetic hyperosmolar non-ketotic state Assessment/Plan: Patient was on insulin drip last night and blood glucose is much improved this morning. Patient's blood glucose is down to 166. Patient was initially too lethargic to be placed on sliding scale and diabetic diet. She now appears to be more alert and awake and therefore we will place her on diabetic diet and sliding scale insulin. Patient will be restarted on her home dose of long-acting insulin. Patient states that she had poor appetite and nausea at home and this was the cause of her blood glucose being elevated. Resolved (2) Metabolic encephalopathy Assessment/Plan: Patient's metabolic encephalopathy is slowly improving. She is still slightly lethargic this morning however awake enough that she can eat. The patient's metabolic encephalopathy is thought to be secondary to her hyperglycemia. 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 She was extremely lethargic but improved with an insulin drip overnight. She will now be placed back on her home dose of long-acting insulin and a sliding scale. The patient's hemoglobin A1c is 10.9 which is very poorly controlled. She will be counseled about nutrition. (4) Peripheral vascular disease Assessment/Plan: The patient has a history of peripheral vascular disease and has amputations in the past. Currently she appears to be stable. (5) BOY (acute kidney injury) Assessment/Plan: Patient has acute kidney injury on presentation with a creatinine of 2.0. The patient's creatinine this morning is improved to 1.6. Likely her acute kidney injury secondary to dehydration from hyperosmolar nonketotic state. We will continue to give the patient IV fluids and monitor her creatinine. We will avoid any nephrotoxic agents. (6) Depression Qualifiers: Depression Type: major depressive disorder Assessment/Plan: Patient has a history of depression and is on Effexor. Currently she is still quite lethargic but appears to be in stable mood. (7) Hypothyroidism Assessment/Plan: The patient has a history of hypothyroidism and is on Synthroid at home. We will continue the patient's home dose of Synthroid while she is hospitalized. (8) Open wound, lower leg Qualifiers: Encounter type: initial encounter Assessment/Plan: Patient has a history of an open wound on her right leg. The patient was thought to have cellulitis on this leg and is on Augmentin at home. We will continue the patient's home dose of Augmentin to treat the cellulitis. The patient's leg wound looks much improved and does not appear to be infected anymore. (9) Hypertension Qualifiers: Hypertension type: essential hypertension Qualified Code(s): I10 - Essential (primary) hypertension Assessment/Plan: The patient has a history of hypertension and is on nifedipine, Coreg, losartan and hydrochlorothiazide at home. We will continue these medications while she is hospitalized. - Current Meds Current Meds: Current Medications Generic Name Dose Route Start Last Admin Trade Name Freq PRN Reason Stop Dose Admin Amoxicillin/Clavulanate Potassium 1 tab 05/07/18 01:00 05/07/18 08:54 Augmentin 500/125 PO 05/16/18 09:01 1 tab BID CINDY Administration Aspirin 325 mg 05/06/18 09:00 05/07/18 08:54 Vee PO 325 mg DAILY CINDY Administration Atorvastatin Calcium 40 mg 05/06/18 09:00 05/07/18 08:53 Lipitor PO 40 mg DAILY CINDY Administration Carvedilol 6.125 mg 05/06/18 21:00 05/07/18 08:52 Coreg PO 6.125 mg BID CINDY Administration Gabapentin 1,200 mg 05/06/18 00:45 05/06/18 21:14 Neurontin PO 1,200 mg QPM CINDY Administration Guaifenesin/Codeine Phosphate 5 ml 05/07/18 00:31 05/07/18 00:49 Robitussin Ac PO 5 ml Q6HR PRN Administration Cough Sodium Chloride 1,000 mls @ 125 mls/hr 05/06/18 08:00 05/07/18 08:35 Normal Saline 0.9% IV 125 mls/hr .Q8H CINDY Administration Insulin Aspart 1 - 9 unit 05/06/18 17:00 05/07/18 08:40 Novolog SUBQ 3 unit 0800,1200,1700,2100 CINDY Administration Protocol Insulin Glargine 20 unit 05/07/18 08:00 05/07/18 08:44 Lantus Solostar SUBQ 20 unit QDBREAKFAST CINDY Administration Insulin Glargine 20 unit 05/06/18 21:00 05/06/18 21:13 Lantus Solostar SUBQ 20 unit QPM CINDY Administration Levothyroxine Sodium 100 mcg 05/06/18 07:00 05/07/18 06:18 Synthroid PO 100 mcg QDAC CINDY Administration Levothyroxine Sodium 75 mcg 05/06/18 07:00 05/07/18 06:17 Synthroid PO 75 mcg QDAC CINDY Administration Nifedipine 30 mg 05/06/18 21:00 05/06/18 21:14 Procardia Xl PO 30 mg QPM CINDY Administration Pantoprazole Sodium 40 mg 05/05/18 23:45 05/07/18 06:20 Protonix IVP 40 mg BIDAC CINDY Administration Polyethylene Glycol 17 gm 05/06/18 09:00 05/07/18 08:54 Miralax PO 17 gm DAILY CINDY Administration Sodium Chloride 10 ml 05/06/18 01:00 05/07/18 08:40 Normal Saline Flush 0.9% IVP 10 ml 0100,0900,1700 CINDY Administration Venlafaxine HCl 150 mg 05/06/18 09:00 05/07/18 08:54 Effexor Er PO 150 mg DAILY CINDY Administration Zolpidem Tartrate 5 mg 05/07/18 00:32 05/07/18 00:49 Ambien PO 5 mg QPM PRN Administration Insomnia - Lab Result Lab results reviewed: Yes Fish Bone Diagrams: 05/07/18 04:43 05/07/18 04:43 - Diagnostic Imaging Results Diagnostic Imaging Results: Final report reviewed - Additional Planning Condition/Complexity: Guarded My Orders: My Active Orders 05/06/18 17:00 Insulin Aspart [NovoLOG] 1 - 9 unit SUBQ 0800,1200,1700,2100 05/06/18 21:00 Carvedilol [Coreg] 6.125 mg PO BID Insulin Glargine [Lantus Solostar] 20 unit SUBQ QPM NIFEdipine [Procardia Xl] 30 mg PO QPM 05/06/18 Lunch Carb-controlled Diet [DIET] 05/07/18 08:00 Insulin Glargine [Lantus Solostar] 20 unit SUBQ QDBREAKFAST Plan Discussed with:: Patient Time Spent: 31-60 minutes Subjective - Subjective Patient Reports: Other (Patient is still lethargic but feels better. She is already asking about going home. She denies any fevers or chills.) Nursing Reports: No Complaints Objective Vital Signs: Vital Signs - 24 hr 05/06/18 05/06/18 05/06/18 11:00 12:00 13:00 Temperature 37.1 C 37.1 C Heart Rate [ 74 75 78 Monitoring electrodes] Respiratory 12 12 14 Rate Blood Pressure Blood Pressure 143/70 H 147/68 H 154/70 H [Left Brachial artery] O2 Saturation 95 95 96 05/06/18 05/06/18 05/06/18 14:00 16:00 20:00 Temperature Heart Rate [ 77 73 78 Monitoring electrodes] Respiratory 19 18 17 Rate Blood Pressure Blood Pressure 152/66 H 149/73 H 160/72 H [Left Brachial artery] O2 Saturation 95 97 98 05/06/18 05/06/18 05/06/18 21:18 22:00 23:00 Temperature Heart Rate [ 83 83 68 Monitoring electrodes] Respiratory 19 25 H 14 Rate Blood Pressure Blood Pressure 169/75 H 164/69 H 134/64 H [Left Brachial artery] O2 Saturation 95 96 95 05/07/18 05/07/18 05/07/18 00:00 01:01 04:00 Temperature 37.5 C Heart Rate [ 65 65 66 Monitoring electrodes] Respiratory 14 19 16 Rate Blood Pressure Blood Pressure 118/69 118/69 148/68 H [Left Brachial artery] O2 Saturation 98 99 98 05/07/18 05/07/18 05/07/18 05:27 06:21 07:53 Temperature 36.5 C 36.5 C Heart Rate [ 67 74 73 Monitoring electrodes] Respiratory 12 19 15 Rate Blood Pressure Blood Pressure 159/69 H 172/71 H [Left Brachial artery] O2 Saturation 97 100 98 05/07/18 05/07/18 05/07/18 08:45 08:48 08:50 Temperature Heart Rate [ Monitoring electrodes] Respiratory Rate Blood Pressure 185/74 H Blood Pressure 185/74 H 191/79 H [Left Brachial artery] O2 Saturation 05/07/18 05/07/18 05/07/18 08:55 09:07 09:15 Temperature Heart Rate [ 75 Monitoring electrodes] Respiratory 20 Rate Blood Pressure Blood Pressure 177/77 H 177/77 H 126/58 L [Left Brachial artery] O2 Saturation 100 05/07/18 05/07/18 09:30 09:45 Temperature Heart Rate [ Monitoring electrodes] Respiratory 21 Rate Blood Pressure Blood Pressure 151/80 H 146/67 H [Left Brachial artery] O2 Saturation 95 Oxygen O2 Source Room air Oxygen Flow Rate 2 I&O (Last 24 Hrs): Intake and Output Totals x24h 05/05/18 05/06/18 05/07/18 23:59 23:59 23:59 Intake Total 1000 5671.988 1860 Output Total 3150 950 Balance 1000 2521.988 910 General: Other (Lethargic but arousable) HEENT: Atraumatic, PERRLA, EOMI, Other (Dry mucus membranes) Neck: Supple, No JVD, No thyromegaly, +2 carotid pulse wo bruit, No LAD Lymphatic: no adenopathy Neuro: Alert, Non Focal, CN 2-12 Grossly Intact, Other (Lethargic) Cardiovascular: Regular rate, Normal S1, Normal S2, No murmurs Respiratory: Chest non-tender, No respiratory distress, Breath sounds nml, Wheezes Abdomen: Normal bowel sounds, Soft, No tenderness, No hepatospenomegaly Extremities: No clubbing, No cyanosis, No edema, Normal pulses Comments/Notes: Right leg wound appears red with excoriation but no obvious infection. - Results Results: Laboratory Results WBC 11.9 x10^3/uL (4.8-10.8) H 05/07/18 04:43 RBC 4.30 10^6/uL (4.20-5.40) 05/07/18 04:43 Hgb 12.9 g/dL (12.0-16.0) 05/07/18 04:43 Hct 39.2 % (37.0-47.0) 05/07/18 04:43 MCV 91.2 fL (81.0-99.0) 05/07/18 04:43 MCH 29.9 pg (27.0-31.0) 05/07/18 04:43 MCHC 32.8 g/dL (32.0-36.0) 05/07/18 04:43 RDW 13.4 % (12.0-15.0) 05/07/18 04:43 Plt Count 255 10^3/uL (130-450) 05/07/18 04:43 MPV 8.2 fL (7.9-10.8) 05/07/18 04:43 Neut # (Auto) 8.0 10^3/uL (1.5-6.6) H 05/07/18 04:43 Lymph # (Auto) 2.6 10^3/uL (1.5-3.5) 05/07/18 04:43 [place] # (Auto) 1.1 10^3/uL (0.0-1.0) H 05/07/18 04:43 Eos # (Auto) 0.1 10^3/uL (0.0-0.7) 05/07/18 04:43 Baso # (Auto) 0.1 10^3/uL (0.0-0.1) 05/07/18 04:43 Absolute Nucleated RBC 0.00 x10^3/uL 05/07/18 04:43 Nucleated RBC % 0.0 /100WBC 05/07/18 04:43 VBG pH 7.456 (7.31-7.41) H 05/05/18 21:23 VBG pCO2 43.2 mmHg (41-51) 05/05/18 21:23 VBG pO2 23.8 mmHg (25-47) L 05/05/18 21:23 VBG HCO3 29.8 mmol/L (23-28) H 05/05/18 21:23 VBG Total CO2 31.1 mmol/L (24-29) H 05/05/18 21:23 VBG O2 Saturation 50.1 % (60-80) L 05/05/18 21:23 VBG Base Excess 5.2 mmol/L (-2 - +2) H 05/05/18 21:23 Sodium 135 mmol/L (135-145) 05/07/18 04:43 Potassium 3.8 mmol/L (3.5-5.0) 05/07/18 04:43 Chloride 102 mmol/L (101-111) 05/07/18 04:43 Carbon Dioxide 28 mmol/L (21-32) 05/07/18 04:43 Anion Gap 5.0 (6-13) L 05/07/18 04:43 BUN 31 mg/dL (6-20) H 05/07/18 04:43 Creatinine 0.9 mg/dL (0.4-1.0) 05/07/18 04:43 Estimated GFR (MDRD) 63 (>89) L 05/07/18 04:43 Glucose 218 mg/dL (70-100) H 05/07/18 04:43 POC Whole Bld Glucose 184 mg/dL (70 - 100) H 05/07/18 07:49 Glycated Hemoglobin 10.9 % (4.6-6.2) H 05/06/18 08:13 Estim Average Glucose 266 (70-100) H 05/06/18 08:13 Calcium 7.8 mg/dL (8.5-10.3) L 05/07/18 04:43 Phosphorus 1.9 mg/dL (2.5-4.6) L 05/07/18 04:43 Magnesium 1.9 mg/dL (1.7-2.8) 05/07/18 04:43 Total Bilirubin 0.8 mg/dL (0.2-1.0) 05/05/18 20:40 AST 32 IU/L (10-42) 05/05/18 20:40 ALT 22 IU/L (10-60) 05/05/18 20:40 Alkaline Phosphatase 136 IU/L (42-121) H 05/05/18 20:40 Troponin I < 0.04 ng/mL (<0.49) 05/05/18 20:40 Total Protein 8.0 g/dL (6.7-8.2) 05/05/18 20:40 Albumin 3.2 g/dL (3.2-5.5) 05/07/18 04:43 Globulin 3.9 g/dL (2.1-4.2) 05/05/18 20:40 Albumin/Globulin Ratio 1.1 (1.0-2.2) 05/05/18 20:40 Lipase 17 U/L (22-51) L 05/05/18 20:40 Urine Color YELLOW 05/06/18 04:15 Urine Clarity CLEAR (CLEAR) 05/06/18 04:15 Urine pH 5.5 PH (5.0-7.5) 05/06/18 04:15 Ur Specific [place] 1.025 (1.002-1.030) 05/06/18 04:15 Urine Protein >=300 mg/dL (NEGATIVE) H 05/06/18 04:15 Urine Glucose (UA) >=1000 mg/dL (NEGATIVE) H 05/06/18 04:15 Urine Ketones TRACE mg/dL (NEGATIVE) 05/06/18 04:15 Urine Occult Blood LARGE (NEGATIVE) H 05/06/18 04:15 Urine Nitrite NEGATIVE (NEGATIVE) 05/06/18 04:15 Urine Bilirubin NEGATIVE (NEGATIVE) 05/06/18 04:15 Urine Urobilinogen 0.2 (NORMAL) E.U./dL (NORMAL) 05/06/18 04:15 Ur Leukocyte Esterase NEGATIVE (NEGATIVE) 05/06/18 04:15 Urine RBC 6-10 /HPF (0-5) H 05/06/18 04:15 Urine WBC 0-3 /HPF (0-5) 05/06/18 04:15 Ur Squamous Epith Cells RARE Squamous (<= Few) 05/06/18 04:15 Urine Bacteria None Seen /HPF (None Seen) 05/06/18 04:15 Urine Casts 3-5 Hyaline Casts /LPF 05/06/18 04:15 Ur Microscopic Review INDICATED 05/06/18 04:15 Urine Culture Comments NOT INDICATED 05/06/18 04:15 Urine Opiates Screen NEGATIVE (NEGATIVE) 05/06/18 04:15 Ur Oxycodone Screen NEGATIVE (NEGATIVE) 05/06/18 04:15 Urine Methadone Screen NEGATIVE (NEGATIVE) 05/06/18 04:15 Ur Propoxyphene Screen NEGATIVE (NEGATIVE) 05/06/18 04:15 Ur Barbiturates Screen NEGATIVE (NEGATIVE) 05/06/18 04:15 Ur Tricyclics Screen NEGATIVE (NEGATIVE) 05/06/18 04:15 Ur Phencyclidine Scrn NEGATIVE (NEGATIVE) 05/06/18 04:15 Ur Amphetamine Screen NEGATIVE (NEGATIVE) 05/06/18 04:15 U Methamphetamines Scrn NEGATIVE (NEGATIVE) 05/06/18 04:15 U Benzodiazepines Scrn POSITIVE (NEGATIVE) H 05/06/18 04:15 Urine Cocaine Screen NEGATIVE (NEGATIVE) 05/06/18 04:15 U Cannabinoids Screen POSITIVE (NEGATIVE) H 05/06/18 04:15 Ethyl Alcohol < 5.0 mg/dL 05/05/18 23:45 Serum Ketones NEGATIVE (NEGATIVE) 05/06/18 04:41 - Procedures Procedures: Procedures CENTRAL VENOUS CATHETER PLACEMENT WITH GUIDANCE (03/11/14) EXCIS DEBRIDE OF WOUND, INFECT, OR BURN (09/24/13) OTHER SKIN & SUBQ I D (08/31/13) TOE AMPUTATION (10/06/13) VENOUS CATHETERIZATION NEC (09/24/13) ABX Reporting Has patient been on IV antibiotics over the past 48 hours?: No Current Medications - Current Medications Current Medications: Active Medications Generic Name Dose Route Start Last Admin Trade Name Freq PRN Reason Stop Dose Admin Amoxicillin/Clavulanate Potassium 1 tab 05/07/18 01:00 05/07/18 08:54 Augmentin 500/125 PO 05/16/18 09:01 1 tab BID CINDY Administration Aspirin 325 mg 05/06/18 09:00 05/07/18 08:54 Vee PO 325 mg DAILY CINDY Administration Atorvastatin Calcium 40 mg 05/06/18 09:00 05/07/18 08:53 Lipitor PO 40 mg DAILY CINDY Administration Carvedilol 6.125 mg 05/06/18 21:00 05/07/18 08:52 Coreg PO 6.125 mg BID CINDY Administration Gabapentin 1,200 mg 05/06/18 00:45 05/06/18 21:14 Neurontin PO 1,200 mg QPM CINDY Administration Guaifenesin/Codeine Phosphate 5 ml 05/07/18 00:31 05/07/18 00:49 Robitussin Ac PO 5 ml Q6HR PRN Administration Cough Sodium Chloride 1,000 mls @ 125 mls/hr 05/06/18 08:00 05/07/18 08:35 Normal Saline 0.9% IV 125 mls/hr .Q8H CINDY Administration Ibuprofen 400 mg 05/06/18 11:11 Motrin PO DAILY PRN PAIN Insulin Aspart 1 - 9 unit 05/06/18 17:00 05/07/18 08:40 Novolog SUBQ 3 unit 0800,1200,1700,2100 CINDY Administration Protocol Insulin Glargine 20 unit 05/07/18 08:00 05/07/18 08:44 Lantus Solostar SUBQ 20 unit QDBREAKFAST CINDY Administration Insulin Glargine 20 unit 05/06/18 21:00 05/06/18 21:13 Lantus Solostar SUBQ 20 unit QPM CINDY Administration Levothyroxine Sodium 100 mcg 05/06/18 07:00 05/07/18 06:18 Synthroid PO 100 mcg QDAC CINDY Administration Levothyroxine Sodium 75 mcg 05/06/18 07:00 05/07/18 06:17 Synthroid PO 75 mcg QDAC CINDY Administration Nifedipine 30 mg 05/06/18 21:00 05/06/18 21:14 Procardia Xl PO 30 mg QPM CINDY Administration Pantoprazole Sodium 40 mg 05/05/18 23:45 05/07/18 06:20 Protonix IVP 40 mg BIDAC CINDY Administration Polyethylene Glycol 17 gm 05/06/18 09:00 05/07/18 08:54 Miralax PO 17 gm DAILY CINDY Administration Prochlorperazine Edisylate 10 mg 05/05/18 23:01 Compazine Inj IVP Q6HR PRN Nausea / Vomiting Sodium Chloride 10 ml 05/05/18 23:01 Normal Saline Flush 0.9% IVP PRN PRN NEEDED PER PROVIDER ORDERS Sodium Chloride 10 ml 05/06/18 01:00 05/07/18 08:40 Normal Saline Flush 0.9% IVP 10 ml 0100,0900,1700 REPLACED BY [facility] Administration Throat Lozenges 1 lozenge 05/06/18 09:32 Cepacol MM Q2HR PRN Throat pain Venlafaxine HCl 150 mg 05/06/18 09:00 05/07/18 08:54 Effexor Er PO 150 mg DAILY CINDY Administration Zolpidem Tartrate 5 mg 05/07/18 00:32 05/07/18 00:49 Ambien PO 5 mg QPM PRN Administration Insomnia Insulin Detemir [Levemir] 20 unit SUBQ BID 02/22/13 Gabapentin [Neurontin] 1,200 mg PO QPM 09/11/13 Levothyroxine Sodium [Synthroid] 175 mcg PO QDAC 09/11/13 Venlafaxine ER [Effexor ER] 150 mg PO DAILY 09/11/13 Losartan/Hydrochlorothiazide [Losartan-Hctz 100-25 mg Tab] 1 tab PO DAILY 09/27/13 Rosuvastatin Calcium [Crestor] 20 mg PO DAILY 10/25/13 Amox/Clav 500/125 [Augmentin 500/125] 1 tab PO [id number] 05/06/18 Aspirin [Aspirin EC] 81 mg PO DAILY PRN 05/06/18 Carvedilol 6.25 mg PO BID 05/06/18 Ibuprofen 400 mg PO DAILY PRN 05/06/18 Nifedipine [Nifedipine ER] 30 mg PO QPM 05/06/18
--- NOTE | 2018-05-07 10:49 | Discharge Plan ---
Discharge Plan Disposition: 01 Home, Self Care Condition: Fair Diet: Diabetic Activity Restrictions: Activity as Tolerated Shower Restrictions: No Driving Restrictions: No Weight Bearing: Full Weight Additional Instructions or Follow Up instructions: You were brought into the emergency department due to shortness of breath and lethargy. You were found to have a blood glucose of 670. And you appear to be in hyperosmolar nonketotic state. We admitted you to our intensive care unit and placed you on an insulin drip. He also had some dehydration and injury to your kidneys. Your given fluids and insulin. You had improvement in your blood glucose and also had improvement in your kidney function. You are now completely awake and alert. We did notice that you were having some choking and aspiration when you were eating. You should be careful with eating thinner liquids and soups. Try to stick to thicker foods. Your blood glucose is now well controlled with your home dose of insulin. You are well enough that you may return home and continue on your home insulin regimen. No Smoking: If you smoke, Please STOP! Call for help. Follow-up with: RD CAMPOVERDE [Primary Care Provider] -
--- NOTE | 2018-05-07 10:52 | DISCHARGE SUMMARY ---
Discharge Summary Admit Date: 05/05/18 Discharge Date: 05/07/18 Discharging Provider: Juanpablo Raman MD Primary Care Provider: Hilda Hayes MD Code Status: Attempt Resuscitation Condition at Discharge: Fair Discharge Disposition: 01 Home, Self Care - DIAGNOSES Admission Diagnoses: 1. Hyperosmolar nonketotic state 2. Altered mental status 3. Diabetic neuropathy and retinopathy 4. Peripheral vascular disease 5. Acute on chronic kidney disease 6. Hypertension 7. Depression 8. Hypothyroidism 9. Leg wounds Discharge Diagnoses with Status of Each Condition: 1. Hyperosmolar nonketotic state: Resolved 2. Metabolic encephalopathy: Resolved 3. Type 2 diabetes mellitus: Stable 4. Acute kidney injury: Resolved 5. Peripheral vascular disease: Stable 6. Hypertension: Stable 7. Depression: Stable 8. Hypothyroidism: Stable 9. Lower extremity cellulitis: Stable - HPI History of Present Illness: Patient is a 63-year-old female with a past medical history signif icant for diabetes, diabetic neuropathy and retinopathy, she is legally blind, osteomyelitis and peripheral vascular disease with prior toe amputations, hypertension, depression, hypothyroidism who presented to the emergency department with a chief complaint of shortness of breath and also her noted confusion. Workup in the emergency department revealed that the patient had hyperosmolar nonketotic state and was admitted to the ICU for an insulin drip. Patient was awake and confused in the emergency department and received Ativan which made her somewhat somnolent when she arrived in the ICU. - HOSPITAL COURSE Hospital Course: The patient was initially treated with an insulin drip and IV fluids in the emergency department. The patient responded well and was able to be taken off of the insulin drip as her blood glucose dropped below 200. Slowly the patient also became more awake and alert. The patient was restarted on her home dose of long-acting insulin and a sliding scale. The patient's blood glucose remained controlled while she was hospitalized. Her mentation improved back to her baseline. The patient also had acute kidney injury when she presented to the emergency department and her creatinine returned back to her baseline with fluids. The patient did have some episode of aspiration while she was hospitalized which she says she has been having trouble with for the last few weeks after having some trauma to her neck. The patient however was able to tolerate her breakfast this morning of oatmeal. She was initially placed on some oxygen which was removed and she was able to saturate well on room air. The patient is being discharged home in stable condition. She will need to follow-up with her primary care physician for further workup for her aspiration and dysphasia. She will also need to follow-up for her diabetes as her A1c is uncontrolled. The patient was given counseling on diet and use of insulin. - ALLERGIES Allergies/Adverse Reactions: Allergies Allergy/AdvReac Type Severity Reaction Status Date / Time codeine [Codeine] AdvReac Mild Nausea Verified 05/07/18 06:42 daptomycin AdvReac Respiratory Verified 05/05/18 20:36 ondansetron AdvReac Unknown Verified 05/05/18 20:36 [From Zofran (as hydrochloride)] - MEDICATIONS Home Medications: Ambulatory Orders Medication Instructions Recorded Confirmed Insulin Detemir [Levemir] 20 unit SUBQ BID 02/22/13 05/06/18 Gabapentin [Neurontin] 1,200 mg PO QPM 09/11/13 05/06/18 Levothyroxine Sodium [Synthroid] 175 mcg PO QDAC 09/11/13 05/06/18 Venlafaxine ER [Effexor ER] 150 mg PO DAILY 09/11/13 05/06/18 Losartan/Hydrochlorothiazide 1 tab PO DAILY 09/27/13 05/06/18 [Losartan-Hctz 100-25 mg Tab] Rosuvastatin Calcium [Crestor] 20 mg PO DAILY 10/25/13 05/06/18 Amox/Clav 500/125 [Augmentin 1 tab PO [id number] 05/06/18 05/06/18 500/125] Aspirin [Aspirin EC] 81 mg PO DAILY PRN 05/06/18 05/06/18 Carvedilol 6.25 mg PO BID 05/06/18 05/06/18 Ibuprofen 400 mg PO DAILY PRN 05/06/18 05/06/18 Nifedipine [Nifedipine ER] 30 mg PO QPM 05/06/18 05/06/18 - PHYSICAL EXAM AT DISCHARGE General Appearance: positive: No acute distress, Alert Eyes Bilateral: positive: Normal inspection, PERRL, EOMI, No lid inflammation, Conjunctivae nml, No scleral icterus ENT: positive: ENT inspection nml, Pharynx nml, No signs of dehydration. ne gative: Purulent nasal drainage, Pharyngeal erythema, Oral lesions Neck: positive: Nml inspection, Thyroid nml, No JVD, Trachea midline. negative: Thyromegaly, Lymphadenopathy (R), Lymphadenopathy (L), Carotid bruit, Tracheal deviation Respiratory: positive: Chest non-tender, No respiratory distress, Breath sounds nml. negative: Wheezes, Rales, Rhonchi Cardiovascular: positive: Regular rate & rhythm, No murmur, No gallop Peripheral Pulses: positive: 2+ Abdomen: positive: Non-tender, No organomegaly, Nml bowel sounds, No distention. negative: Guarding, Rebound, Hepatomegaly Skin: positive: Other (Right leg wound) Extremities: positive: Non-tender, Full ROM, Nml appearance, No pedal edema Neurologic/Psychiatric: positive: Oriented x3, CN's nml (2-12), Motor nml, Sensation nml, Mood/affect nml - LABS Result Diagrams: 05/07/18 04:43 05/07/18 04:43 Other Lab Results: Laboratory Results WBC 11.9 x10^3/uL (4.8-10.8) H 05/07/18 04:43 RBC 4.30 10^6/uL (4.20-5.40) 05/07/18 04:43 Hgb 12.9 g/dL (12.0-16.0) 05/07/18 04:43 Hct 39.2 % (37.0-47.0) 05/07/18 04:43 MCV 91.2 fL (81.0-99.0) 05/07/18 04:43 MCH 29.9 pg (27.0-31.0) 05/07/18 04:43 MCHC 32.8 g/dL (32.0-36.0) 05/07/18 04:43 RDW 13.4 % (12.0-15.0) 05/07/18 04:43 Plt Count 255 10^3/uL (130-450) 05/07/18 04:43 MPV 8.2 fL (7.9-10.8) 05/07/18 04:43 Neut # (Auto) 8.0 10^3/uL (1.5-6.6) H 05/07/18 04:43 Lymph # (Auto) 2.6 10^3/uL (1.5-3.5) 05/07/18 04:43 [place] # (Auto) 1.1 10^3/uL (0.0-1.0) H 05/07/18 04:43 Eos # (Auto) 0.1 10^3/uL (0.0-0.7) 05/07/18 04:43 Baso # (Auto) 0.1 10^3/uL (0.0-0.1) 05/07/18 04:43 Absolute Nucleated RBC 0.00 x10^3/uL 05/07/18 04:43 Nucleated RBC % 0.0 /100WBC 05/07/18 04:43 VBG pH 7.456 (7.31-7.41) H 05/05/18 21:23 VBG pCO2 43.2 mmHg (41-51) 05/05/18 21:23 VBG pO2 23.8 mmHg (25-47) L 05/05/18 21:23 VBG HCO3 29.8 mmol/L (23-28) H 05/05/18 21:23 VBG Total CO2 31.1 mmol/L (24-29) H 05/05/18 21:23 VBG O2 Saturation 50.1 % (60-80) L 05/05/18 21:23 VBG Base Excess 5.2 mmol/L (-2 - +2) H 05/05/18 21:23 Sodium 135 mmol/L (135-145) 05/07/18 04:43 Potassium 3.8 mmol/L (3.5-5.0) 05/07/18 04:43 Chloride 102 mmol/L (101-111) 05/07/18 04:43 Carbon Dioxide 28 mmol/L (21-32) 05/07/18 04:43 Anion Gap 5.0 (6-13) L 05/07/18 04:43 BUN 31 mg/dL (6-20) H 05/07/18 04:43 Creatinine 0.9 mg/dL (0.4-1.0) 05/07/18 04:43 Estimated GFR (MDRD) 63 (>89) L 05/07/18 04:43 Glucose 218 mg/dL (70-100) H 05/07/18 04:43 POC Whole Bld Glucose 184 mg/dL (70 - 100) H 05/07/18 07:49 Glycated Hemoglobin 10.9 % (4.6-6.2) H 05/06/18 08:13 Estim Average Glucose 266 (70-100) H 05/06/18 08:13 Calcium 7.8 mg/dL (8.5-10.3) L 05/07/18 04:43 Phosphorus 1.9 mg/dL (2.5-4.6) L 05/07/18 04:43 Magnesium 1.9 mg/dL (1.7-2.8) 05/07/18 04:43 Total Bilirubin 0.8 mg/dL (0.2-1.0) 05/05/18 20:40 AST 32 IU/L (10-42) 05/05/18 20:40 ALT 22 IU/L (10-60) 05/05/18 20:40 Alkaline Phosphatase 136 IU/L (42-121) H 05/05/18 20:40 Troponin I < 0.04 ng/mL (<0.49) 05/05/18 20:40 Total Protein 8.0 g/dL (6.7-8.2) 05/05/18 20:40 Albumin 3.2 g/dL (3.2-5.5) 05/07/18 04:43 Globulin 3.9 g/dL (2.1-4.2) 05/05/18 20:40 Albumin/Globulin Ratio 1.1 (1.0-2.2) 05/05/18 20:40 Lipase 17 U/L (22-51) L 05/05/18 20:40 Urine Color YELLOW 05/06/18 04:15 Urine Clarity CLEAR (CLEAR) 05/06/18 04:15 Urine pH 5.5 PH (5.0-7.5) 05/06/18 04:15 Ur Specific [place] 1.025 (1.002-1.030) 05/06/18 04:15 Urine Protein >=300 mg/dL (NEGATIVE) H 05/06/18 04:15 Urine Glucose (UA) >=1000 mg/dL (NEGATIVE) H 05/06/18 04:15 Urine Ketones TRACE mg/dL (NEGATIVE) 05/06/18 04:15 Urine Occult Blood LARGE (NEGATIVE) H 05/06/18 04:15 Urine Nitrite NEGATIVE (NEGATIVE) 05/06/18 04:15 Urine Bilirubin NEGATIVE (NEGATIVE) 05/06/18 04:15 Urine Urobilinogen 0.2 (NORMAL) E.U./dL (NORMAL) 05/06/18 04:15 Ur Leukocyte Esterase NEGATIVE (NEGATIVE) 05/06/18 04:15 Urine RBC 6-10 /HPF (0-5) H 05/06/18 04:15 Urine WBC 0-3 /HPF (0-5) 05/06/18 04:15 Ur Squamous Epith Cells RARE Squamous (<= Few) 05/06/18 04:15 Urine Bacteria None Seen /HPF (None Seen) 05/06/18 04:15 Urine Casts 3-5 Hyaline Casts /LPF 05/06/18 04:15 Ur Microscopic Review INDICATED 05/06/18 04:15 Urine Culture Comments NOT INDICATED 05/06/18 04:15 Urine Opiates Screen NEGATIVE (NEGATIVE) 05/06/18 04:15 Ur Oxycodone Screen NEGATIVE (NEGATIVE) 05/06/18 04:15 Urine Methadone Screen NEGATIVE (NEGATIVE) 05/06/18 04:15 Ur Propoxyphene Screen NEGATIVE (NEGATIVE) 05/06/18 04:15 Ur Barbiturates Screen NEGATIVE (NEGATIVE) 05/06/18 04:15 Ur Tricyclics Screen NEGATIVE (NEGATIVE) 05/06/18 04:15 Ur Phencyclidine Scrn NEGATIVE (NEGATIVE) 05/06/18 04:15 Ur Amphetamine Screen NEGATIVE (NEGATIVE) 05/06/18 04:15 U Methamphetamines Scrn NEGATIVE (NEGATIVE) 05/06/18 04:15 U Benzodiazepines Scrn POSITIVE (NEGATIVE) H 05/06/18 04:15 Urine Cocaine Screen NEGATIVE (NEGATIVE) 05/06/18 04:15 U Cannabinoids Screen POSITIVE (NEGATIVE) H 05/06/18 04:15 Ethyl Alcohol < 5.0 mg/dL 05/05/18 23:45 Serum Ketones NEGATIVE (NEGATIVE) 05/06/18 04:41 - DIAGNOSTIC IMAGING Diagnostic Imaging Results: Final report reviewed Diagnostic Imaging Results Comments: Chest x-ray 05/05/2018 Impression: No acute cardiopulmonary findings. Chest x-ray 05/07/2018 Impression: No lobar consolidation to suggest airspace disease. - FOLLOW UP Follow Up: The patient was discharged home in stable condition after hospitalization for hyperosmolar nonketotic state. The patient's blood glucose improved with an insulin drip overnight. The patient was also very dehydrated and was given IV fluid with which she had an improvement in her kidney function. Patient was also altered on presentation and return to her baseline mental status. The patient will need to follow-up with her primary care physician for her diabetes and also for some dysphasia that she was having while she was hospitalized. - TIME SPENT Time Spent in Discharge (Minutes): 40
[2018-05-07] MEDS ORDERED: INSULIN ASPART 300 UNIT/3 ML PEN SUBQ SCH (12:00)
[2018-05-07 12:36] VITALS: BP 170/72
== END 2018-05-07 12:37 | disposition home or self-care (01) | DRG 637 ==
LOC: ED 20:23 → ICU 23:01
PROVIDERS: ADMIT Internal Medicine; ATTEND Internal Medicine
DX: E11.65 Type 2 diabetes mellitus with hyperglycemia (principal); E86.0 Dehydration; R41.82 Altered mental status, unspecified; I10 Essential (primary) hypertension; E11.00 Type 2 diabetes mellitus with hyperosmolarity without nonketotic hyperglycemic-hyperosmolar coma (NKHHC); H54.7 Unspecified visual loss; G93.41 Metabolic encephalopathy; N17.9 Acute kidney failure, unspecified; L03.115 Cellulitis of right lower limb; E11.40 Type 2 diabetes mellitus with diabetic neuropathy, unspecified; E11.319 Type 2 diabetes mellitus with unspecified diabetic retinopathy without macular edema; H54.8 Legal blindness, as defined in USA; Z89.429 Acquired absence of other toe(s), unspecified side; I12.9 Hypertensive chronic kidney disease with stage 1 through stage 4 chronic kidney disease, or unspecified chronic kidney disease; E11.22 Type 2 diabetes mellitus with diabetic chronic kidney disease; N18.9 Chronic kidney disease, unspecified; E03.9 Hypothyroidism, unspecified; E11.51 Type 2 diabetes mellitus with diabetic peripheral angiopathy without gangrene
CPT/HCPCS: 36415; 71045; 80048; 80053; 80306; 80320; 81001; 81003; 82009; 82040; 82803; 83036; 83690; 83735; 84100; 84484; 85025; 87070; 87077; 87086; 87150; 87181; 87205; 93005; 96361; 96374; 99284; 99285

== ENCOUNTER 2018-10-29 07:24 | Outpatient (CLI) | payer MEDICARE, OTHER ==
--- NOTE | 2018-10-29 17:16 | MRI Report ---
Reason: CARPAL TUNNEL SYNDROME,UNSPECI,CERVICAL PAIN Procedure Date: 10/16/2018 Accession Number: [id number] / [id number] Procedure: MRI - Cervical Spine W/O CPT Code: FULL RESULT: EXAM: MRI CERVICAL SPINE WITHOUT CONTRAST EXAM DATE: 10/29/2018 08:04 AM. CLINICAL HISTORY: Bilateral hand and wrist pain and numbness. Carpal tunnel syndrome. COMPARISONS: None. TECHNIQUE: Multiplanar, multisequence T1-weighted and fluid-sensitive sequences of the cervical spine without contrast. Other: None. FINDINGS: There is motion degradation on the exam. Grade 1 anterolisthesis of C4 relative to C5 is noted. Loss of disk space height is seen at most levels in the cervical spine greatest from C4 through C7. Reversal of the normal cervical lordosis is present centered over C5. Accounting for motion artifact, no definite abnormal signal is seen in the cervical spinal cord. Motion degradation limits assessment for abnormal cord signal. Buckling of the ligamentum flavum is seen at multiple levels greatest from C3 through C5. Posterior longitudinal ligament hypertrophy is seen greatest at the level of the C4 through C6 vertebral bodies. C2-C3: No posterior disk protrusion is seen. C3-C4: A mild to moderate posterior disk protrusion is seen. Central canal measures 5-6 mm. Bilateral uncovertebral joint spurring is seen. There is mild right and moderate left foraminal stenosis. C4-C5: A minimal posterior disk protrusion is seen. Bilateral uncovertebral joint spurring is present. Mild to moderate left and mild right foraminal stenosis is present. Central canal measures 8-9 mm. C5-C6: A mild posterior disk protrusion is seen. Bilateral uncovertebral joint spurring is seen. Central canal measures 8-9 mm. Mild right and moderate left foraminal stenosis is seen. C6-C7: A mild posterior disk protrusion is seen. Bilateral uncovertebral joint spurring is seen. Moderate bilateral foraminal stenosis is present. Central canal measures 8-9 mm. C7-T1: A mild posterior disk protrusion is seen. Bilateral uncovertebral joint spurring is present. Mild left and moderate right foraminal stenosis is present. Central canal measures 7-8 mm. T1-T2: A minimal posterior disk protrusion is seen without central canal stenosis or foraminal stenosis. Anterior disk protrusion and osteophyte formation are seen at most levels most evident from C4 through T1. IMPRESSION: 1. Degenerative disk disease is seen from C3 through T2. In addition, there is buckling of the ligamentum flavum at some levels as well as posterior longitudinal ligament hypertrophy. 2. Central canal stenosis is present from C3 through T1. This is greatest at C3-C4 where the degree of central canal stenosis is moderate. 4. Multilevel foraminal stenosis. 5. Accounting for motion artifact, no definite abnormal signal is seen in the cervical spinal cord. RADIA
--- NOTE | 2018-10-30 08:42 | MRI Report ---
Reason: CARPAL TUNNEL SYNDROME,UNSPECI,CERVICAL PAIN Procedure Date: 10/29/2018 Accession Number: [id number] / [id number] Procedure: MRI - Wrist RT W/O CPT Code: FULL RESULT: EXAM: RIGHT WRIST MRI WITHOUT CONTRAST EXAM DATE: 10/29/2018 08:00 AM. CLINICAL HISTORY: CARPAL TUNNEL SYNDROME,UNSPECI,CERVICAL PAIN. COMPARISON: None. TECHNIQUE: Multiplanar, multisequence T1-weighted and fluid-sensitive sequences of the wrist without contrast. Other: None. FINDINGS: Bones: No fractures. There is diffuse marrow edema within the lunate, as well as additional foci of subchondral marrow edema at the proximal capitate and distal radial articular surface of the lunate fossa. Marrow signal is otherwise normal. Negative ulnar variance. Cartilage: Articular cartilage evaluation is limited by motion artifact. No discrete cartilage defect is identified, although there is presumably a full-thickness cartilage fissuring at the sites of subchondral marrow edema. The triangular fibrocartilage complex is unremarkable. Ligaments: The scapholunate and lunotriquetral ligaments are intact. The visualized other intrinsic, extrinsic and collateral ligaments are unremarkable. Tendons: The extensor compartment I through and flexor tendons are unremarkable. Musculature: No edema or fatty atrophy. Other: The median nerve is enlarged and increased in signal proximal and distal to the carpal tunnel. Contents of Guyon's canal are normal. No ganglion cysts. No joint effusions. The subcutaneous tissues are unremarkable. IMPRESSION: 1. Enlarged, T2 hyperintense median nerve surrounding the carpal tunnel, as can be seen in the setting of carpal tunnel syndrome. Correlate with clinical examination. 2. Diffuse marrow edema within the lunate in the setting of negative ulnar variance suggests early stage osteonecrosis. 3. Degenerative subchondral marrow edema at the lunate fossa of the distal radius and proximal capitate. RADIA
--- NOTE | 2018-10-30 08:47 | MRI Report ---
Reason: CARPAL TUNNEL SYNDROME,UNSPECI,CERVICAL PAIN Procedure Date: 10/29/2018 Accession Number: [id number] / [id number] Procedure: MRI - Wrist LT W/O CPT Code: FULL RESULT: EXAM: LEFT WRIST MRI WITHOUT CONTRAST EXAM DATE: 10/29/2018 09:25 AM. CLINICAL HISTORY: CARPAL TUNNEL SYNDROME,UNSPECI,CERVICAL PAIN. COMPARISON: None. TECHNIQUE: Multiplanar, multisequence T1-weighted and fluid-sensitive sequences of the wrist without contrast. Other: None. FINDINGS: Examination was terminated prematurely. Axial T1, axial T2 fat sat, and coronal T1 sequences were acquired. The patient is returning to complete imaging at a later date. Limited evaluation of the wrist demonstrates mild enlargement and T2 hyperintensity of the median nerve at the carpal tunnel. No discrete fractures. Limited evaluation of the intrinsic and extrinsic ligaments of the wrist. The flexor and extensor tendons are grossly intact. Subcutaneous tissues are normal. No ganglion cysts or masses. IMPRESSION: Examination was terminated prior to completion. Patient will return at a subsequent date for completion of imaging. Within the limits of the examination, there is enlargement in T2 hyperintensity of the median nerve surrounding the carpal tunnel, suggestive of carpal tunnel syndrome. Correlate with clinical examination. RADIA
== END 2018-10-29 07:25 | disposition home or self-care (01) ==
LOC: DI 07:24
PROVIDERS: ATTEND Family Medicine
DX: G56.00 Carpal tunnel syndrome, unspecified upper limb (principal); R60.0 Localized edema; M50.31 Other cervical disc degeneration, high cervical region; M48.02 Spinal stenosis, cervical region; M50.21 Other cervical disc displacement, high cervical region; M47.812 Spondylosis without myelopathy or radiculopathy, cervical region; M51.24 Other intervertebral disc displacement, thoracic region; M43.12 Spondylolisthesis, cervical region
CPT/HCPCS: 72141

== ENCOUNTER 2018-11-01 08:41 | Outpatient (CLI) | payer MEDICARE, OTHER ==
--- NOTE | 2018-11-01 17:55 | MRI Report ---
Reason: CARPAL TUNNEL SYNDROME,UNSPECI Procedure Date: 11/01/2018 Accession Number: [id number] / [id number] Procedure: MRI - Wrist LT W/O CPT Code: FULL RESULT: EXAM: LEFT WRIST MRI WITHOUT CONTRAST EXAM DATE: 11/01/2018 08:57 AM. CLINICAL HISTORY: Carpal tunnel syndrome. COMPARISON: WRIST LT W/O 10/29/2018 9:09 AM. TECHNIQUE: Multiplanar, multisequence T1-weighted and fluid-sensitive sequences of the wrist without contrast. Other: None. FINDINGS: Bones: No fractures or subluxations. No marrow edema. No bone lesions. Cartilage: The articular cartilage is unremarkable. The triangular fibrocartilage complex is unremarkable. Ligaments: The scapholunate and lunotriquetral ligaments are intact. The visualized other intrinsic, extrinsic and collateral ligaments are unremarkable. Tendons: Extensor compartments 2, 3, and 4 show significant synovial hypertrophic change and a small amount of fluid. Extensor compartments 1, 5 and 6 appear unremarkable. Flexor tendons in the carpal tunnel show no synovitis. Musculature: No edema or fatty atrophy. Other: There is substantial anterior bowing of the carpal tunnel. There is abnormal swelling of the median nerve proximal and distal to the flexor retinaculum. Some increased T2 signal also seen in the swollen median nerve. Series 501,13. No ganglion cysts. No joint effusions. The subcutaneous tissues are unremarkable. IMPRESSION: 1. Features indicate carpal tunnel syndrome is present, with swelling of the median nerve proximal and distal to the flexor retinaculum. Some increased T2 signal seen in the proximal median nerve. Retinaculum is also significant bowed anteriorly. 2. Moderate tenosynovitis seen at the second, third, and fourth extensor compartments. 3. No fractures. No significant arthritic changes. RADIA
== END 2018-11-01 08:42 | disposition home or self-care (01) ==
LOC: DI 08:41
PROVIDERS: ATTEND Family Medicine
DX: G56.02 Carpal tunnel syndrome, left upper limb (principal); M65.832 Other synovitis and tenosynovitis, left forearm

== ENCOUNTER 2019-04-26 14:56 | Emergency (ER) | payer MEDICARE, OTHER ==
[2019-04-26] MEDS ORDERED: HYDROmorphone 1 MG/ML CARPUJECT IVP STA (15:15)
[2019-04-26] MEDS ORDERED: METOCLOPRAMIDE 10 MG/2 ML VIAL IVP STA (15:16)
--- NOTE | 2019-04-26 15:19 | ED Physician Documentation ---
PD HPI BACK INJURY - Stated complaint Stated Complaint: GLF X 2 - LOWER BACK PAIN - History obtained from History obtained from: Patient (8 days ago she was cleaning out her oven, she lost her balance and fell backwards, and the next night, 7 days ago, she fell and hit her tailbone. She has had severe mid and lower back pain ever since, some numbness in the anterior left thigh. She is a poorly controlled type I diabetic with a lot of neuropathy in her legs causing some chronic balance issues. She denies saddle anesthesia or incontinence.) Review of Systems Constitutional: denies: Fever, Chills Cardiac: denies: Chest pain / pressure, Palpitations Respiratory: denies: Dyspnea, Cough GI: denies: Abdominal Pain, Nausea, Vomiting PD PAST MEDICAL HISTORY - Past Medical History Cardiovascular: Peripheral Vascular Disease, Hypertension Respiratory: Pneumonia Neuro: Peripheral neuropathy, Motion sickness, Other Endocrine/Autoimmune: Type 1 diabetes, HyPOthyroidism GI: None : None HEENT: Chronic vision loss Psych: None Derm: None - Past Surgical History Past Surgical History: Yes General: Colonoscopy 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 HEENT: Tonsil/Adenoidectomy Derm: Skin cancer surgery - Present Medications Home Medications: Ambulatory Orders Medication Instructions Recorded Confirmed Insulin Detemir [Levemir] 28 unit SUBQ BID 02/22/13 05/06/18 Gabapentin [Neurontin] 1,200 mg PO QPM 09/11/13 05/06/18 Levothyroxine Sodium [Synthroid] 175 mcg PO QDAC 09/11/13 05/06/18 Venlafaxine ER [Effexor ER] 150 mg PO DAILY 09/11/13 05/06/18 Losartan/Hydrochlorothiazide 1 tab PO DAILY 09/27/13 05/06/18 [Losartan-Hctz 100-25 mg Tab] Rosuvastatin Calcium [Crestor] 20 mg PO DAILY 10/25/13 05/06/18 Aspirin [Aspirin EC] 81 mg PO DAILY PRN 05/06/18 05/06/18 Ibuprofen 400 mg PO DAILY PRN 05/06/18 05/06/18 Nifedipine [Nifedipine ER] 30 mg PO QPM 05/06/18 05/06/18 carvediloL [Carvedilol] 6.25 mg PO BID 05/06/18 05/06/18 Hydrocodone/Acetaminophen 1 - 2 each PO Q6H PRN #20 tablet 04/26/19 [Hydrocodon-Acetaminophen 5-325] - Allergies Allergies/Adverse Reactions: Allergies Allergy/AdvReac Type Severity Reaction Status Date / Time codeine [Codeine] AdvReac Mild Nausea Verified 04/26/19 15:00 daptomycin AdvReac Respiratory Verified 04/26/19 15:00 ondansetron AdvReac Unknown Verified 04/26/19 15:00 [From Zofran (as hydrochloride)] - Social History Does the pt smoke?: No Smoking Status: Never smoker Does the pt drink ETOH?: No Does the pt have substance abuse?: No - Immunizations Immunizations are current?: Yes - POLST Patient has POLST: No PD ED PE NORMAL - Vitals Vital signs reviewed: Yes - General General: Alert and oriented X 3, No acute distress - Neck Neck: Supple, no meningeal sign, No bony TTP - Cardiac Cardiac: RRR, No murmur - Respiratory Respiratory: No respiratory distress, Clear bilaterally - Abdomen Abdomen: Non tender - Back Back: Other (Quite tender to the upper lumbar and lower thoracic spine. Also some tenderness to the sacrum. Sensation in the lower extremities is symmetric Diminished reflexes throughout her lower extremities with poor muscle mass, p robably from longstanding diabetes. Except slightly less on the right medial calf compared to the left medial calf.) - Derm Derm: Normal color, Warm and dry - Extremities Extremities: No edema, No calf tenderness / cord - Neuro Neuro: Alert and oriented X 3, Normal speech Results - Vitals Vitals: Vital Signs - 24 hr 04/26/19 15:00 Temperature 36.8 C Heart Rate 71 Respiratory 18 Rate Blood Pressure 176/68 H O2 Saturation 96 Oxygen O2 Source Room air - Labs Labs: Laboratory Tests 04/26/19 04/26/19 16:09 16:09 WBC 12.1 H RBC 4.51 Hgb 13.6 Hct 42.4 MCV 94.0 MCH 30.2 MCHC 32.1 RDW 12.2 Plt Count 306 MPV 10.8 Neut # (Auto) Not Reportable Lymph # (Auto) Not Reportable Iron # (Auto) Not Reportable Eos # (Auto) Not Reportable Baso # (Auto) Not Reportable Absolute Nucleated RBC Not Reportable Total Counted 100 Band Neuts % (Manual) 0 Abnorm Lymph % (Manual) 0 Nucleated RBC % Not Reportable Neutrophils # (Manual) 6.5 Lymphocytes # (Manual) 2.5 Monocytes # (Manual) 1.2 H Eosinophils # (Manual) 1.6 H Basophils # (Manual) 0.2 H Differential Comment MANUAL DIFFERENTIAL Manual Slide Review Indicated WBC Morphology NORMAL APPEARANCE Platelet Estimate NORMAL (130-450,000) Platelet Morphology NORMAL APPEARANCE RBC Morph Micro Appear NORMAL APPEARANCE Sodium 134 L Potassium 4.4 Chloride 93 L Carbon Dioxide 31 Anion Gap 10.0 BUN 48 H Creatinine 1.3 H Estimated GFR (MDRD) 41 L Glucose 116 H Calcium 9.0 Total Bilirubin 0.5 AST 19 ALT 21 Alkaline Phosphatase 130 H Total Protein 7.3 Albumin 4.0 Globulin 3.3 Albumin/Globulin Ratio 1.2 Lipase 35 - Rads (name of study) CT cervical spine without contrast Radiology: EMP read contemporaneously (Moderate scoliosis and degenerative joint disease and disc disease without acute traumatic findings. Persistent spiculated nodule in the right lung apex, recommend follow-up chest CT) CT T/L Radiology: EMP read contemporaneously Departure - Departure Disposition: Home, Self Care Clinical Impression: Back pain Qualifiers: Back pain location: low back pain Chronicity: acute Back pain laterality: bilateral Sciatica presence: with sciatica Sciatica laterality: sciatica of left side Qualified Code(s): M54.42 - Lumbago with sciatica, left side Injury of neck Qualifiers: Encounter type: initial encounter Qualified Code(s): S19.9XXA - Unspecified injury of neck, initial encounter Fall Qualifiers: Encounter type: initial encounter Qualified Code(s): W19.XXXA - Unspecified fall, initial encounter Peripheral neuropathy Qualifiers: Peripheral neuropathy type: polyneuropathy, unspecified Qualified Code(s): G62.9 - Polyneuropathy, unspecified Condition: Good Record reviewed to determine appropriate education?: Yes Instructions: ED Low Back Pain Injury, ED Sprain Strain Neck Prescriptions: Hydrocodone/Acetaminophen [Hydrocodon-Acetaminophen 5-325] 1 - 2 each PO Q6H PRN #20 tablet PRN Reason: pain Comments: You do have a persistent nodule that is not changing at the apex of your lung seen on the CAT scan of your neck. Discuss this with your doctor, The radiologist recommends a CT of your chest in about a year. Nodule is small though measuring 7 mm. [address] not drink or drive while taking narcotic pain medication. Note that many narcotic pain relievers also contain Tylenol/acetaminophen. Please ensure that your total dose of acetaminophen from all sources does not exceed 3 g (3000 mg) per day. You may get constipated while on this medication. Take a stool softener such as Colace twice a day while you are on it. Also add an [id number] laxative such as senna or MiraLAX on any day that you do not have a bowel movement. If you received a narcotic pain medication or sedative while in the emergency department, do not drive for the next 24 hours. Call your doctor to arrange a follow-up appointment, make the next available appointment. In the interim, return anytime if worse or if new symptoms develop.
[2019-04-26] MEDS ORDERED: METOCLOPRAMIDE 10 MG/2 ML VIAL IM STA (16:03)
[2019-04-26] MEDS ORDERED: HYDROmorphone 1 MG/ML CARPUJECT IM STA (16:03)
--- NOTE | 2019-04-26 16:19 | CT Report ---
Reason: back/neck pain p fall Procedure Date: 04/26/2019 Accession Number: [id number] / [id number] Procedure: CT - CERVICAL SPINE WO CPT Code: Final Report FULL RESULT: EXAM: CT CERVICAL SPINE WITHOUT CONTRAST DATE: 04/26/2019 03:47 PM. HISTORY: Back/neck pain p fall. COMPARISONS: CERVICAL SPINE W/O 10/29/2018 8:04 AM CHEST ANGIO 06/07/2017 3:57 PM. TECHNIQUE: Thin-section axial images were acquired of the cervical spine without contrast. Post-processing: Coronal and sagittal reformats. Other: None. In accordance with CT protocol optimization, one or more of the following dose reduction techniques were utilized for this exam: automated exposure control, adjustment of mA and/or KV based on patient size, or use of iterative reconstructive technique. FINDINGS: Alignment: Moderate scoliosis. Reversal of lordotic curve with slight kyphosis at C5. Minimal anterolisthesis of C3 and C4. No significant listhesis. Bones: No definite fracture or bone lesion. Interspace Levels/Facets: Disk space narrowing at C4-C5, C5-C6, and C6-C7 with lesser narrowing at C7-T1. Associated degenerative changes. Musculature: Normal. No fatty atrophy. Other: No prevertebral soft tissue swelling. Spiculated nodule in right apex measuring about 7 mm, present on previous study as well. Previous apical infiltrates have resolved. IMPRESSION: 1. Moderate scoliosis with multilevel degenerative joint and disk disease. No definite acute cervical spine disease. 2. Persistent spiculated nodule in right lung apex; routine follow-up chest CT is recommended to determine if this is solitary. RADIA
[2019-04-26 16:20] LABS: BASOPHILS % (AUTO) 0.9 %; EOSINOPHILS % (AUTO) 11.3 %; HGB - HEMOGLOBIN 13.6 g/dL (12.0-16.0); LYMPHOCYTES % (AUTO) 28.2 %; MEAN CORPUSCULAR HEMOGLOBIN 30.2 pg (27.0-31.0); MEAN CORPUSCULAR HGB CONC 32.1 g/dL (32.0-36.0); MEAN PLATELET VOLUME 10.8 fL (7.9-10.8); MONOCYTES % (AUTO) 8.1 %; PLT - PLATELET COUNT 306 10^3/uL (130-450); RED BLOOD COUNT 4.51 10^6/uL (4.20-5.40); RED CELL DISTRIBUTION WIDTH 12.2 % (12.0-15.0); WHITE BLOOD COUNT 12.1 x10^3/uL (4.8-10.8)
--- NOTE | 2019-04-26 16:24 | CT Report ---
Reason: back/neck pain p fall Procedure Date: 04/26/2019 Accession Number: [id number] / [id number] Procedure: CT - THORACIC SPINE WO CPT Code: Final Report FULL RESULT: EXAM: CT THORACIC SPINE WITHOUT CONTRAST EXAM DATE: 04/26/2019 03:47 PM. CLINICAL HISTORY: Back/neck pain p fall. COMPARISONS: None. TECHNIQUE: Thin-section axial images were acquired of the thoracic spine from C7 to L1 without contrast. Post-processing: Coronal and sagittal reformats. Other: None. In accordance with CT protocol optimization, one or more of the following dose reduction techniques were utilized for this exam: automated exposure control, adjustment of mA and/or KV based on patient size, or use of iterative reconstructive technique. FINDINGS: Alignment: Minimal scoliosis. No listhesis. Bones: Osteopenia. No definite fracture or other bone lesion. Disk Levels/Facets: Minimal generalized disk space narrowing through the mid and upper thoracic levels with marginal lipping. Musculature: Unremarkable. Other: Spiculated right apical lung nodule measuring about 7 mm appears to be solitary and this study. Lungs otherwise clear. No effusion or pneumothorax. Normal overall heart size. No significant coronary artery calcifications. Borderline main pulmonary artery measuring 3.2 cm. IMPRESSION: 1. Minimal scoliosis with degenerative changes. 2. Spiculated right apical nodule measuring 7 mm, apparently solitary; an additional chest CT is recommended in 1 year from now, per Fleischner Society guidelines. RADIA
[2019-04-26 16:26] LABS: ALBUMIN/GLOBULIN RATIO 1.2 (1.0-2.2); BILIRUBIN,TOTAL 0.5 mg/dL (0.2-1.0); CREATININE 1.3 mg/dL (0.4-1.0); TOTAL PROTEIN 7.3 g/dL (6.7-8.2)
[2019-04-26 16:28] LABS: ABNORMAL LYMPHS % (MANUAL) 0 %; BAND NEUTROPHILS % (MANUAL) 0 %
--- NOTE | 2019-04-26 16:28 | CT Report ---
Reason: back/neck pain p fall Procedure Date: 04/26/2019 Accession Number: [id number] / [id number] Procedure: CT - LUMBAR SPINE WO CPT Code: Final Report FULL RESULT: EXAM: CT LUMBAR SPINE WITHOUT CONTRAST EXAM DATE: 04/26/2019 03:47 PM. CLINICAL HISTORY: Back/neck pain p fall. COMPARISONS: None. TECHNIQUE: Thin-section axial images were acquired of the lumbar spine from T12 to S1 without contrast. Post-processing: Coronal and sagittal reformats. Other: None. In accordance with CT protocol optimization, one or more of the following dose reduction techniques were utilized for this exam: automated exposure control, adjustment of mA and/or KV based on patient size, or use of iterative reconstructive technique. FINDINGS: Alignment: No scoliosis. Grade 1-2 anterolisthesis of L5 due to bilateral spondylolysis. Bones: 5 lumbar vertebrae. No definite fractures or bone lesions. Disk Levels/Facets: Disk space narrowing at L5-S1 with prominent degenerative changes in the L5-S1 facet joints. Other disk spaces well preserved. Musculature: Unremarkable. Other: The visualized retroperitoneum is unremarkable. IMPRESSION: Grade 1-2 anterolisthesis of L5 due to bilateral spondylolysis with associated degenerative joint and disk disease at L5-S1. No definite acute disease. RADIA
[2019-04-26 16:40] LABS: BASOPHILS # (MANUAL) 0.2 10^3/uL (0-0.1); BASOPHILS % (MANUAL) 2 %; DIFFERENTIAL COMMENT MANUAL DIFFERENTIAL; EOSINOPHILS # (MANUAL) 1.6 10^3/uL (0-0.7); LYMPHOCYTES # (MANUAL) 2.5 10^3/uL (1.5-3.5); LYMPHOCYTES % (MANUAL) 21 %; MONOCYTES # (MANUAL) 1.2 10^3/uL (0.0-1.0); PLATELET ESTIMATE, MANUAL NORMAL (130-450,000) (NORMAL); PLATELET MORPHOLOGY NORMAL APPEARANCE (NORMAL); RBC MORPHOLOGY (MULTIPLE) NORMAL APPEARANCE (NORMAL)
[2019-04-26 17:01] VITALS: BP 127/68
== END 2019-04-26 17:00 | disposition home or self-care (01) ==
LOC: ED 14:56
DX: M54.42 Lumbago with sciatica, left side (principal); S19.9XXA Unspecified injury of neck, initial encounter; W18.30XA Fall on same level, unspecified, initial encounter; Y93.E9 Activity, other interior property and clothing maintenance; Y92.000 Kitchen of unspecified non-institutional (private) residence as the place of occurrence of the external cause; E10.42 Type 1 diabetes mellitus with diabetic polyneuropathy; R91.1 Solitary pulmonary nodule; I10 Essential (primary) hypertension
CPT/HCPCS: 36415; 72125; 72128; 72131; 80053; 83690; 85025; 96372; 99284; J1170; J2765

== ENCOUNTER 2020-01-04 13:36 | Emergency (ER) | payer MEDICARE, OTHER ==
[2020-01-04] MEDS ORDERED: LORazepam 2 MG/ML VIAL IVP STA ×2 (13:42→15:02)
--- NOTE | 2020-01-04 13:50 | ED Physician Documentation ---
PD HPI ALTERED MENTAL STATUS - Stated complaint Stated Complaint: AMS - History obtained from History obtained from: EMS - Additional information Additional information: 64-year-old woman brought in today by paramedics for altered mental status. She is incoherent so all of the history is from the paramedics. Also from a chart review. She is a poorly controlled diabetic and reportedly pulled out or discontinued her insulin pump. Over the last few hours I guess has become quite altered. Blood sugar was in the 500s prior to arrival. I tried to call the family using both phone numbers on the chart, one had a full mailbox, I left a voicemail on the other. 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 HEENT: Tonsil/Adenoidectomy Derm: Skin cancer surgery - Present Medications Home Medications: Ambulatory Orders Medication Instructions Recorded Confirmed Insulin Detemir [Levemir] 28 unit SUBQ BID 02/22/13 05/06/18 Gabapentin [Neurontin] 1,200 mg PO QPM 09/11/13 05/06/18 Levothyroxine Sodium [Synthroid] 175 mcg PO QDAC 09/11/13 05/06/18 Venlafaxine ER [Effexor ER] 150 mg PO DAILY 09/11/13 05/06/18 Losartan/Hydrochlorothiazide 1 tab PO DAILY 09/27/13 05/06/18 [Losartan-Hctz 100-25 mg Tab] Rosuvastatin Calcium [Crestor] 20 mg PO DAILY 10/25/13 05/06/18 Aspirin [Aspirin EC] 81 mg PO DAILY PRN 05/06/18 05/06/18 Ibuprofen 400 mg PO DAILY PRN 05/06/18 05/06/18 NIFEdipine [Nifedipine ER] 30 mg PO QPM 05/06/18 05/06/18 carvediloL [Carvedilol] 6.25 mg PO BID 05/06/18 05/06/18 Hydrocodone/Acetaminophen 1 - 2 each PO Q6H PRN #20 tablet 04/26/19 [Hydrocodon-Acetaminophen 5-325] - Allergies Allergies/Adverse Reactions: Allergies Allergy/AdvReac Type Severity Reaction Status Date / Time codeine [Codeine] AdvReac Mild Nausea Verified 04/26/19 15:00 daptomycin AdvReac Respiratory Verified 04/26/19 15:00 ondansetron AdvReac Unknown Verified 04/26/19 15:00 [From Zofran (as hydrochloride)] - Social History Does the pt smoke?: No Smoking Status: Never smoker Does the pt drink ETOH?: No Does the pt have substance abuse?: No - Immunizations Immunizations are current?: Yes - POLST Patient has POLST: No PD ED PE NORMAL - Vitals Vital signs reviewed: Yes - General General: Other (She is hyperventilating, agitated. She is completely disoriented, will not answer specific questions but does state things such as "I have to get out".) - HEENT HEENT: PERRL, EOMI - Neck Neck: Supple, no meningeal sign, No bony TTP - Respiratory Respiratory: Other (Hyperventilating) - Abdomen Abdomen: Soft, Non tender - Back Back: No CVA TTP, No spinal TTP - Derm Derm: Normal color, Warm and dry - Extremities Extremities: Other (Multiple lower extremity amputations) - Neuro Neuro: Other (Moving all extremities with excellent strength, she is agitated, not following commands.) Eye Opening: Spontaneous Motor: Localizes to Pain Verbal: Inappropriate GCS Score: 12 Results - Vitals Vitals: Vital Signs - 24 hr 01/04/20 01/04/20 01/04/20 13:36 14:05 14:10 Temperature 36.6 C Heart Rate 102 H 101 H 99 Respiratory 32 H 45 H 18 Rate Blood Pressure 209/173 H 170/143 H 217/100 H O2 Saturation 98 99 99 01/04/20 01/04/20 01/04/20 14:56 15:40 15:47 Temperature Heart Rate 103 H 108 H 109 H Respiratory 23 20 Rate Blood Pressure 227/83 H 245/100 H O2 Saturation 100 99 01/04/20 01/04/20 01/04/20 15:50 15:55 16:00 Temperature Heart Rate 112 H 110 H 111 H Respiratory 21 21 22 Rate Blood Pressure 225/104 H 224/96 H 185/56 H O2 Saturation 96 94 94 01/04/20 01/04/2020 16:05 16:10 16:15 Temperature Heart Rate 110 H 94 88 Respiratory 21 23 20 Rate Blood Pressure 186/164 H 142/62 H 159/75 H O2 Saturation 95 95 95 01/04/20 01/04/20 16:20 16:25 Temperature Heart Rate 96 100 Respiratory 20 20 Rate Blood Pressure 210/79 H 228/130 H O2 Saturation 95 96 Oxygen O2 Source Mechanical ventilator - EKG (time done) 1422 Rate: Rate (enter#) (96) Rhythm: NSR, LAE Holt: Normal Intervals: Normal AL, Prolonged QT Ischemia: Non specific changes Computer interpretation: Agree with computer - Labs Labs: Laboratory Tests 01/04/20 01/04/20 01/04/20 13:50 13:50 13:50 WBC 23.0 H RBC 4.44 Hgb 13.6 Hct 40.5 MCV 91.2 MCH 30.6 MCHC 33.6 RDW 13.1 Plt Count 346 MPV 11.2 H Neut # (Auto) 20.1 H Lymph # (Auto) 1.3 L [place] # (Auto) 1.3 H Eos # (Auto) 0.0 Baso # (Auto) 0.1 Absolute Nucleated RBC 0.00 Band Neuts % (Manual) Not Reportable Abnorm Lymph % (Manual) Not Reportable Nucleated RBC % 0.0 Neutrophils # (Manual) Not Reportable Lymphocytes # (Manual) Not Reportable Monocytes # (Manual) Not Reportable Eosinophils # (Manual) Not Reportable Basophils # (Manual) Not Reportable Differential Comment MANUAL=AUTO DIFF Platelet Estimate NORMAL (130-450,000) Platelet Morphology NORMAL APPEARANCE RBC Morph Micro Appear NORMAL APPEARANCE PT 12.8 H INR 1.1 Bld Gas Analysis Time Sample Site ABG pH ABG pCO2 ABG pO2 ABG HCO3 ABG Total CO2 ABG O2 Saturation ABG Base Excess Kenrick Test VBG pH VBG pCO2 VBG pO2 VBG HCO3 VBG Total CO2 VBG O2 Saturation VBG Base Excess Respiration Rate O2 Delivery Device Vent Mode FiO2 Tidal Volume PEEP Pressure Support Vent Sodium 136 Potassium 4.1 Chloride 94 L Carbon Dioxide 23 Anion Gap 19.0 H BUN 50 H Creatinine 2.0 H Estimated GFR (MDRD) 25 L Glucose 550 H* Lactic Acid Calcium 9.6 Phosphorus 4.0 Magnesium 1.8 Total Bilirubin 1.1 H AST 37 ALT 23 Alkaline Phosphatase 128 H Total Protein 7.4 Albumin 3.9 Globulin 3.5 Albumin/Globulin Ratio 1.1 Lipase 27 Urine Color Urine Clarity Urine pH Ur Specific [place] Urine Protein Urine Glucose (UA) Urine Ketones Urine Occult Blood Urine Nitrite Urine Bilirubin Urine Urobilinogen Ur Leukocyte Esterase Urine RBC Urine WBC Ur Squamous Epith Cells Urine Bacteria Urine Casts Ur Microscopic Review Urine Culture Comments Ethyl Alcohol < 5.0 Serum Ketones NEGATIVE 01/04/20 01/04/20 01/04/20 13:50 13:50 14:45 WBC RBC Hgb Hct MCV MCH MCHC RDW Plt Count MPV Neut # (Auto) Lymph # (Auto) Louis[place] # (Auto) Eos # (Auto) Baso # (Auto) Absolute Nucleated RBC Band Neuts % (Manual) Abnorm Lymph % (Manual) Nucleated RBC % Neutrophils # (Manual) Lymphocytes # (Manual) Monocytes # (Manual) Eosinophils # (Manual) Basophils # (Manual) Differential Comment Platelet Estimate Platelet Morphology RBC Morph Micro Appear PT INR Bld Gas Analysis Time Sample Site ABG pH ABG pCO2 ABG pO2 ABG HCO3 ABG Total CO2 ABG O2 Saturation ABG Base Excess Kenrick Test VBG pH 7.543 H VBG pCO2 27.6 L VBG pO2 52.8 H VBG HCO3 23.2 VBG Total CO2 24.1 VBG O2 Saturation 90.5 H VBG Base Excess 1.9 Respiration Rate O2 Delivery Device Vent Mode FiO2 Tidal Volume PEEP Pressure Support Vent Sodium Potassium Chloride Carbon Dioxide Anion Gap BUN Creatinine Estimated GFR (MDRD) Glucose Lactic Acid 4.3 H* Calcium Phosphorus Magnesium Total Bilirubin AST ALT Alkaline Phosphatase Total Protein Albumin Globulin Albumin/Globulin Ratio Lipase Urine Color YELLOW Urine Clarity CLEAR Urine pH 7.0 Ur Specific [place] 1.020 Urine Protein >=300 H Urine Glucose (UA) >=1000 H Urine Ketones 15 H Urine Occult Blood SMALL H Urine Nitrite NEGATIVE Urine Bilirubin NEGATIVE Urine Urobilinogen 0.2 (NORMAL) Ur Leukocyte Esterase NEGATIVE Urine RBC 0-5 Urine WBC 0-3 Ur Squamous Epith Cells RARE Squamous Urine Bacteria Rare Urine Casts 3-5 Hyaline Casts Ur Microscopic Review INDICATED Urine Culture Comments NOT INDICATED Ethyl Alcohol Serum Ketones 01/04/20 16:07 WBC RBC Hgb Hct MCV MCH MCHC RDW Plt Count MPV Neut # (Auto) Lymph # (Auto) [place] # (Auto) Eos # (Auto) Baso # (Auto) Absolute Nucleated RBC Band Neuts % (Manual) Abnorm Lymph % (Manual) Nucleated RBC % Neutrophils # (Manual) Lymphocytes # (Manual) Monocytes # (Manual) Eosinophils # (Manual) Basophils # (Manual) Differential Comment Platelet Estimate Platelet Morphology RBC Morph Micro Appear PT INR Bld Gas Analysis Time 1619 Sample Site LEFT RADIAL ABG pH 7.37 ABG pCO2 42 ABG pO2 64 L ABG HCO3 23.7 ABG Total CO2 25.0 ABG O2 Saturation 90 L ABG Base Excess -1.6 Kenrick Test POSITIVE VBG pH VBG pCO2 VBG pO2 VBG HCO3 VBG Total CO2 VBG O2 Saturation VBG Base Excess Respiration Rate 20 O2 Delivery Device VENTILATOR Vent Mode SIMV FiO2 50.00 Tidal Volume 350 PEEP 5 Pressure Support Vent 10 Sodium Potassium Chloride Carbon Dioxide Anion Gap BUN Creatinine Estimated GFR (MDRD) Glucose Lactic Acid Calcium Phosphorus Magnesium Total Bilirubin AST ALT Alkaline Phosphatase Total Protein Albumin Globulin Albumin/Globulin Ratio Lipase Urine Color Urine Clarity Urine pH Ur Specific [place] Urine Protein Urine Glucose (UA) Urine Ketones Urine Occult Blood Urine Nitrite Urine Bilirubin Urine Urobilinogen Ur Leukocyte Esterase Urine RBC Urine WBC Ur Squamous Epith Cells Urine Bacteria Urine Casts Ur Microscopic Review Urine Culture Comments Ethyl Alcohol Serum Ketones Procedures - Intubation Provider: Emergency physician Medications: Ketamine (200mg), Succinylcholine (200mg) Blade: Glidescope Tube: Size-enter number (7.5), Cuffed, Marked at lips-enter cm Route: Oral Confirmation: Direct visualization, Bilateral breath sounds Complications: No compications - Central Line Central Line Preparation: Unable to obtain consent, Time out completed, Ultrasound used Central line location: Right IJ Central line type: Triple lumen Central line aftercare: Chlorhexidine disc placed, Secured PD MEDICAL DECISION MAKING - ED course ED course: [id number] arrived shortly after patient's arrival, she started to become confused and vomiting yesterday. Today became more agitated and her insulin pump accidentally came out. She has been vomiting and progressively confused. 64-year-old woman presents critically ill, agitated, with hyperglycemia. Work- up demonstrates that she is not in DKA. She does have a white count of 23,000, lactate of over 4. No hemodynamic instability although mildly tachycardic. She required sedation which was achieved with Haldol after a little bit of Ativan. The cause of her obtundation and agitation is not initially clear, I cannot discharge this up to her hyperglycemia unfortunately, the CT scanner here is down today and I do believe she needs work-up with advanced imaging to make sure there is no intracranial lesion. She was graciously accepted by Dr. Washburn at [facility] ER for further evaluation and treatment. She was administered cefepime Flagyl and vancomycin after blood cultures for presumed and possible sepsis. Subsequently woke up and became very agitated again, multiple nurses were holding her down. Did not want to give more Haldol given the long QT on EKG and she was administered more Ativan but without significant effect. Given her critical illness and agitation she was intubated for sedation management. In the interim there she had lost all of her peripheral IV access. A right tibial IO was placed to temporize her while intubated and a central line was also placed. I updated Dr. Washburn at [facility] and she requested that I speak with her hospitalist given how ill she is she may not be appropriate for their facility either.She will have that person call me. Subsequently I spoke with the hospitalist at [facility] he did not feel like it was out of their scope of care. Single view chest x-ray obtained after central line and intubation show appr opriate placement of the tubes and lines without other acute disease. 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
[2020-01-04] MEDS ORDERED: SODIUM CHLORIDE 0.9% 1,000 ML IV STA (14:03)
[2020-01-04] MEDS ORDERED: HALOPERIDOL 5 MG/ML VIAL IVP ONE (14:03)
[2020-01-04 14:10] LABS: VBG PCO2 27.6 mmHg (41-51); VBG PH 7.543 (7.31-7.41); VBG PO2 52.8 mmHg (25-47)
[2020-01-04 14:11] LABS: VBG BASE EXCESS 1.9 mmol/L (-2 - +2); VBG TOTAL CO2 24.1 mmol/L (24-29)
[2020-01-04 14:12] LABS: BASOPHILS # (AUTO) 0.1 10^3/uL (0.0-0.1); BASOPHILS % (AUTO) 0.6 %; EOSINOPHILS % (AUTO) 0.1 %; HGB - HEMOGLOBIN 13.6 g/dL (12.0-16.0); LYMPHOCYTES # (AUTO) 1.3 10^3/uL (1.5-3.5); LYMPHOCYTES % (AUTO) 5.6 %; MEAN CORPUSCULAR HEMOGLOBIN 30.6 pg (27.0-31.0); MEAN CORPUSCULAR HGB CONC 33.6 g/dL (32.0-36.0); MEAN CORPUSCULAR VOLUME 91.2 fL (81.0-99.0); MEAN PLATELET VOLUME 11.2 fL (7.9-10.8); MONOCYTES # (AUTO) 1.3 10^3/uL (0.0-1.0); MONOCYTES % (AUTO) 5.8 %; NEUTROPHILS # (AUTO) 20.1 10^3/uL (1.5-6.6); NEUTROPHILS % (AUTO) 87.2 %; PLT - PLATELET COUNT 346 10^3/uL (130-450); RED BLOOD COUNT 4.44 10^6/uL (4.20-5.40); RED CELL DISTRIBUTION WIDTH 13.1 % (12.0-15.0)
[2020-01-04 14:13] LABS: INR 1.1 (0.8-1.2); PT - PROTHROMBIN TIME 12.8 secs (9.9-12.6)
[2020-01-04 14:18] LABS: ALBUMIN 3.9 g/dL (3.2-5.5); ALBUMIN/GLOBULIN RATIO 1.1 (1.0-2.2); ALKALINE PHOSPHATASE 128 IU/L (42-121); ALT ALANINE AMINOTRANSFERASE 23 IU/L (10-60); AST ASPARTATE AMINOTRANSFERASE 37 IU/L (10-42); BILIRUBIN,TOTAL 1.1 mg/dL (0.2-1.0); BUN - BLOOD UREA NITROGEN 50 mg/dL (6-20); CALCIUM 9.6 mg/dL (8.5-10.3); CARBON DIOXIDE - CO2 23 mmol/L (21-32); CHLORIDE 94 mmol/L (101-111); LIPASE 27 U/L (22-51); MAGNESIUM 1.8 mg/dL (1.7-2.8); SODIUM 136 mmol/L (135-145); TOTAL PROTEIN 7.4 g/dL (6.7-8.2)
[2020-01-04 14:20] LABS: GLUCOSE 550 mg/dL (70-100)
[2020-01-04 14:24] LABS: KETONES, SERUM (ACETEST) NEGATIVE (NEGATIVE)
[2020-01-04] MEDS ORDERED: CEFEPIME 2 GM in SODIUM CHLORIDE 0.9% MINIBAG 100 ML IV STA (14:31)
[2020-01-04] MEDS ORDERED: INSULIN REGULAR HUMAN 100 UNIT in SODIUM CHLORIDE 0.9% 100ML 99 ML IV STA (14:31)
[2020-01-04] MEDS ORDERED: VANCOMYCIN INJ 1.5 GM in SODIUM CHLORIDE 0.9% 500 ML IV STA (14:31)
[2020-01-04] MEDS ORDERED: metroNIDAZOLE 500 MG/100 ML 500 MG/100 ML BAG IV STA (14:31)
[2020-01-04] MEDS ORDERED: LACTATED RINGERS 1,000 ML IV STA (14:31)
[2020-01-04 15:03] LABS: BILIRUBIN,URINE NEGATIVE (NEGATIVE); GLUCOSE, URINE (UA) >=1000 mg/dL (NEGATIVE); KETONES,URINE (UA) 15 mg/dL (NEGATIVE); LEUKOCYTE ESTERASE, URINE NEGATIVE (NEGATIVE); NITRITE,URINE NEGATIVE (NEGATIVE); OCCULT BLOOD,URINE SMALL (NEGATIVE); PROTEIN,URINE >=300 mg/dL (NEGATIVE); UROBILINOGEN,URINE 0.2 (NORMAL) E.U./dL (NORMAL)
[2020-01-04 15:08] LABS: CLARITY,URINE CLEAR (CLEAR)
[2020-01-04 15:11] LABS: DIFFERENTIAL COMMENT MANUAL=AUTO DIFF; PLATELET ESTIMATE, MANUAL NORMAL (130-450,000) (NORMAL); PLATELET MORPHOLOGY NORMAL APPEARANCE (NORMAL); RBC MORPHOLOGY (MULTIPLE) NORMAL APPEARANCE (NORMAL)
[2020-01-04] MEDS ORDERED: LORazepam 2 MG/ML VIAL ONE (15:14)
[2020-01-04 15:18] LABS: BACTERIA,URINE Rare /HPF (None Seen); CASTS, URINE 3-5 Hyaline Casts /LPF; RBC,URINE 0-5 /HPF (0-5); SQUAMOUS EPITHELIAL CELL,UR RARE Squamous (<= Few)
[2020-01-04] MEDS ORDERED: PROPOFOL 500 MG/50 ML 500 MG/50 ML VIAL IV STA (15:20)
[2020-01-04] MEDS ORDERED: SUCCINYLCHOLINE 200 MG/10 ML VIAL IVP STA (15:20)
[2020-01-04] MEDS ORDERED: KETAMINE 500 MG/10 ML VIAL IVP STA (15:20)
[2020-01-04] MEDS ORDERED: SUCCINYLCHOLINE 200 MG/10 ML VIAL ONE (15:40)
[2020-01-04 16:22] LABS: ABG PCO2 42 mmHg (34-45); ABG PH 7.37 (7.35-7.45); ABG PO2 64 mmHg (80-100)
[2020-01-04 16:23] LABS: ABG BASE EXCESS -1.6 mmol/L (-2.0-3.0); ABG HCO3 23.7 mmol/L (22.0-26.0); ABG OXYGEN SATURATION 90 % (94-98); ALLEN TEST POSITIVE
--- NOTE | 2020-01-04 16:25 | XRAY Report ---
PROCEDURE: Chest for Line Placement INDICATIONS: intubated, RIJ CVC TECHNIQUE: One view of the chest was acquired. COMPARISON: 05/07/2018, 05/05/18, 06/07/2017 FINDINGS: Surgical changes and devices: An endotracheal tube is seen, with the tip 3 cm above the suzie. A ri ght-sided central line is seen, with the tip overlying the inferior aspect of the superior vena cava, approximately 1 cm above the cavoatrial junction. Lungs and pleura: On the supine study, no large pneumothorax or large pleural effusions can be seen. No focal infiltrates are detected. Low lung volumes can be seen, causing a carotid appearance to th e lung markings. Mediastinum: Mediastinal contours appear normal. Heart size is normal. Bones and chest wall: No suspicious bony lesions. Age-appropriate degenerative changes are seen. Overlying soft tissues appear unremarkable. IMPRESSION: The tip of the endotracheal tube is seen 3 cm above the suzie. The tip of the right-sided central line is seen overlying the inferior aspect of the superior vena ca va. Low lung volumes. Reviewed by: Juan F Devi MD on 01/04/2020 3:24 PM [email or web address] Approved by: Juan F Devi MD on 01/04/2020 3:24 PM AKDT Station ID: [id number]
[2020-01-04 17:06] VITALS: BP 228/130
[2020-01-04] MEDS ORDERED: PROPOFOL 200 MG/20 ML VIAL IVP STA (17:11)
== END 2020-01-04 16:45 | disposition short-term general hospital (02) ==
LOC: EDUNIT# → ED 13:36
DX: N17.9 Acute kidney failure, unspecified (principal); G93.41 Metabolic encephalopathy; E10.65 Type 1 diabetes mellitus with hyperglycemia; E10.29 Type 1 diabetes mellitus with other diabetic kidney complication; E10.51 Type 1 diabetes mellitus with diabetic peripheral angiopathy without gangrene; E10.42 Type 1 diabetes mellitus with diabetic polyneuropathy; R45.1 Restlessness and agitation; R41.82 Altered mental status, unspecified; R06.4 Hyperventilation; Z79.4 Long term (current) use of insulin; I45.81 Long QT syndrome; Z78.1 Physical restraint status
CPT/HCPCS: 31500; 36415; 36556; 36600; 51702; 71045; 80053; 81001; 82009; 82803; 83605; 83690; 83735; 84100; 85025; 85610; 87040; 93005; 96365; 96366; 96375; 96376; 99291; J0330; J1815; J2060; J3370; J7120; 80320; 81003; 87086; 94770

== ENCOUNTER 2020-01-04 19:13 | Outpatient (CLI) | payer MEDICARE, OTHER | END 2020-01-04 19:14 | disposition critical access hospital (66) | LOC: EMS 19:13 | PROVIDERS: ATTEND Surgery | DX: R41.82 Altered mental status, unspecified (principal); R73.09 Other abnormal glucose | CPT/HCPCS: A0425; A0429 ==

== ENCOUNTER 2020-02-10 22:03 | Outpatient (CLI) | payer MEDICARE, OTHER | END 2020-02-10 22:04 | disposition short-term general hospital (02) | LOC: EMS 22:03 | PROVIDERS: ATTEND Surgery | DX: R40.20 Unspecified coma (principal) | CPT/HCPCS: A0425; A0433 ==